=== PATIENT | male | born 1945 | race Caucasian/White ===

== ENCOUNTER → 2017-07-11 15:16 | Outpatient (CLI) | payer MEDICARE, MEDICAID, SELFPAY | PROVIDERS: PCP Internal Medicine; Visit Provider Internal Medicine | DX: I49.9 Cardiac arrhythmia, unspecified (principal); I10 Essential (primary) hypertension | CPT/HCPCS: 93005 ==

== ENCOUNTER 2020-12-01 07:18 | Inpatient (IN) | payer MEDICARE, MEDICAID, SELFPAY ==
[2020-12-01] VITALS (16 sets, daily range): BP systolic 139–270; BP diastolic 59–116; PULSE 61–117; RESP 18–28; TEMP 36.7–38.2; O2SAT 77–99; BMI 22.7; BMI 20.8
--- NOTE | 2020-12-01 07:29 | XR_ITS ---
PROCEDURE: XR CHEST PORTABLE CLINICAL HISTORY: shortness of breath COMPARISON: No exams were available for comparison FINDINGS: There are no previous exams available for comparison. There is mild cardiomegaly. No pulmonary venous congestion. Interstitial changes are present with Leanne B lines in the lower lobes. Consolidation is present in the right lower lobe and right midlung. COPD changes. There is biapical pleural parenchymal calcification. No obvious pleural effusion IMPRESSION: Consolidation is present in the right mid lower lung zone consistent with pneumonia. COPD with diffuse prominence of the interstitium and diffuse interstitial edema in the lower lobes. The pulmonary vessels however are not engorged. Interstitial edema could be related to acute cardiac decompensation, acute plasma volume overload, or infectious/inflammatory.,. Please correlate with clinical parameters. Biapical pleural/parenchymal calcification. Dictated by: Angelito Hammond MD 12/01/2020 08:38 Angelito Hammond MD in [place] 12/01/2020 08:38
--- NOTE | 2020-12-01 07:31 | HMH.EDGENADL ---
ED Disposition Clinical Impression: Pneumonia Qualifiers: Pneumonia type: due to unspecified organism Laterality: right Lung location: middle lobe of lung Qualified Code(s): J18.9 - Pneumonia, unspecified organism Respiratory failure with hypoxia Qualifiers: Chronicity: acute Qualified Code(s): J96.01 - Acute respiratory failure with hypoxia Disposition: Admitted As Inpatient Condition on Discharge: [facility] Critical Care Critical Care Time: No Attestation: On , the high probability of a clinically significant, sudden or life threatening deterioration of the following system(s) required my full and direct attention, intervention and personal management. The time I documented below is in addition to time spent performing reported procedures but includes the following listed in this critical care notation. Medical Decision Making - Hugh Inquiry Pt receiving controlled substance: No Vital Signs: 12/01/20 07:19 12/01/20 08:31 12/01/20 09:33 Temperature 100.7 F H Temperature Source Oral Pulse Rate 61 83 Pulse Rate [Right Radial] 117 H Respiratory Rate 24 20 18 Blood Pressure 182/59 H 270/116 H Blood Pressure [Right Arm] 198/102 H Blood Pressure Mean [Right Arm] 134 Blood Pressure Source Blood Pressure Source [Right Arm] Automatic Cuff Blood Pressure Position Blood Pressure Position [Right Arm] Sitting 02 Sat by Pulse Oximetry 77 L 93 L 97 Oxygen Delivery Method Room Air Non-Rebreather Non-Rebreather Oxygen Flow Rate (LPM) 12/01/20 10:00 12/01/20 10:51 12/01/20 11:00 Temperature Temperature Source Pulse Rate 80 91 H 95 H Pulse Rate [Right Radial] Respiratory Rate 23 22 28 H Blood Pressure 217/96 H 226/103 H 222/102 H Blood Pressure [Right Arm] Blood Pressure Mean [Right Arm] Blood Pressure Source Automatic Cuff Blood Pressure Source [Right Arm] Blood Pressure Position Sitting Sitting Blood Pressure Position [Right Arm] 02 Sat by Pulse Oximetry 92 L 88 L 85 L Oxygen Delivery Method Nasal Cannula Nasal Cannula Nasal Cannula Oxygen Flow Rate (LPM) 5 5 5 12/01/20 11:20 12/01/20 11:30 12/01/20 11:40 Temperature Temperature Source Pulse Rate 106 H 86 Pulse Rate [Right Radial] Respiratory Rate 28 H 18 Blood Pressure 212/102 H 205/90 H Blood Pressure [Right Arm] Blood Pressure Mean [Right Arm] Blood Pressure Source Automatic Cuff Automatic Cuff Blood Pressure Source [Right Arm] Blood Pressure Position Sitting Sitting Blood Pressure Position [Right Arm] 02 Sat by Pulse Oximetry 97 83 L 98 Oxygen Delivery Method Vapotherm Nasal Cannula Vapotherm Oxygen Flow Rate (LPM) 30 5 - Lab Data Lab Results 12/01/20 07:29: VBG pH 7.36, VBG pCO2 38.5, VBG pO2 46.9 H, VBG HCO3 21.4 L, VBG Total CO2 22.6 L, VBG O2 Saturation 83.5 H, VBG Base Excess -4.0 L 12/01/20 07:36: SARS-CoV-2 (PCR) Not detected, Influenza A Untype (PCR) Not detected, Influenza Type B (PCR) Not detected 12/01/20 07:36: Chlamy pneumoniae PCR Not detected, Adenovirus (PCR) Not detected, B. pertussis DNA (PCR) Not detected, Coronavirus OC43 (PCR) Not detected, Coronavirus HKU1 (PCR) Not detected, Coronavirus 229E (PCR) Not detected, SARS-CoV-2 (PCR) Not detected, Coronavirus NL63 (PCR) Not detected, Human Metapneumovir PCR Not detected, Influenza A (H1) PCR Not detected, Influ A (H1N1/09) PCR Not detected, Influenza A (H3) PCR Not detected, Influenza Type A (PCR) Not detected, Influenza Type B (PCR) Not detected, M. pneumoniae (PCR) Not detected, Parainfluenza 1 (PCR) Not detected, Parainfluenza 2 (PCR) Not detected, Parainfluenza 3 (PCR) Not detected, Parainfluenza 4 (PCR) Not detected, RSV (PCR) Not detected, Entero/Rhino (PCR) Not detected 12/01/20 07:46: WBC 13.7 H, RBC 4.58 L, Hgb 13.9 L, Hct 43.8, MCV 95.6 H, MCH 30.4, MCHC 31.8, RDW 14.7, Plt Count 376, MPV 8.1, Neut % (Auto) 72.8, Lymph % (Auto) 14.6, [place] % (Auto) 2.9, Eos % (Auto) 8.9, Baso % (Auto) 0.8, Neut # (Auto) 10.0
--- NOTE | 2020-12-01 07:34 | ECG_ITS ---
APPROVED REPORT Exam: Resting ECG HR:96 bpm ECG Measurements Heart Rate 96 AXES NM 166 P 79 QRSd 164 QRS -44 QT 412 T 137 QTc 520 Conclusion Sinus rhythm with premature atrial complexes Left axis deviation Left bundle branch block Abnormal ECG Electronically signed by : Emiliano Rosario, 12/01/2020 21:01:40
--- NOTE | 2020-12-01 07:38 | CT_ITS ---
PROCEDURE: CT ANGIO CHEST PE PROTOCOL CLINCIAL INDICATION: sob, hypoxia COMPARISON: CR XR CHEST PORTABLE from 12/01/2020 TECHNIQUE: IV Contrast: 70ML Isovue 370 Axial images obtained with sagittal and coronal reformats. All CT scans at the facility use one or more dose reduction, viz: automated exposure control, ma/kV adjustment per patient size (including targeted exams where dose is matched to indication, i.e. head), or iterative reconstruction technique. FINDINGS: HEART AND MEDIASTINAL STRUCTURES: There is prominent coronary artery calcification. Cardiomegaly. No evidence of aortic aneurysm or dissection. Atherosclerotic changes are present involving the aorta. There is some minimal aortic valve calcification. No evidence of pulmonary embolus. Mildly prominent AP window lymph node at 18 x 8 mm. Overall slight increased density of the mediastinal fat possibly due to underlying inflammatory changes. Prominent right paratracheal lymph node at 17 mm. Increased peribronchial density in the right hilar region which may be related to adenopathy LUNGS AND PLEURAL SPACES: Biapical pleural parenchymal calcification. Centrilobular emphysema. Consolidation is present involving the right lower lobe diffusely with some sparing anteriorly superimposed upon pulmonary fibrotic changes. There is consolidation in the posterior segment of the right upper lobe. Consolidation present in the left lower lobe posteriorly in the superior segment and in the left upper lobe posteriorly along the major fissure. There is a small right pleural effusion. Mild consolidation noted in the right middle lobe. There is some mild diffuse bronchial thickening. There is trace left effusion. BONY STRUCTURES: No acute bony abnormalities apparent. UPPER ABDOMEN: Nonspecific hypodensity left hepatic lobe at 12 mm. Mild prominence of the left adrenal gland ADDITIONAL FINDINGS: No other significant abnormalities. IMPRESSION: 1. No evidence of pulmonary embolus. 2. Diffuse bilateral pneumonia superimposed upon centrilobular emphysema and pulmonary fibrosis. 3. Cardiomegaly. Small bilateral effusions. 4. Mild mediastinal adenopathy which could be reactive. Follow-up may confirm stability. Dictated by: Angelito Hammond MD 12/01/2020 10:03 Angelito Hammond MD in [place] 12/01/2020 10:03
--- NOTE | 2020-12-01 07:38 | PC.NURSE ---
notified RT of VBG order
[2020-12-01 07:54] LABS: Coronavirus 19, PCR Not Detected (NotDetected); Influenza A, PCR Not Detected (NotDetected); Influenza B, PCR Not Detected (NotDetected)
--- NOTE | 2020-12-01 07:56 | PC.NURSE ---
notified rad of orders on pt.
[2020-12-01 08:00] LABS: Basophils # 0.1 K/mm3 (0-0.2); Basophils % 0.8 % (0.1-2.0); Eosinophils # 1.2 K/mm3 (0.0-0.4); Eosinophils % 8.9 % (0.1-12.0); Hematocrit 43.8 % (42.0-52.0); Hemoglobin 13.9 g/dL (14.1-18.0); Lymphocytes % 14.6 % (10-50); Mean Corpuscular HGB Conc 31.8 g/dL (31.8-35.4); Mean Corpuscular Hemoglobin 30.4 pg (27.0-31.2); Mean Corpuscular Volume 95.6 fl (80-94); Mean Platelet Volume 8.1 fl (7.4-10.4); Monocytes # 0.4 K/mm3 (0.1-1.0); Monocytes % 2.9 % (1.7-9.3); Neutrophils % 72.8 % (37.0-80.0); Platelet Count 376 K/mm3 (142-424); Red Blood Count 4.58 M/mm3 (4.60-6.20); Red Cell Distribution Width 14.7 % (11.5-17.5); White Blood Count 13.7 K/mm3 (4.8-10.8)
--- NOTE | 2020-12-01 08:05 | HMH.EDGENADL ---
ED Disposition Clinical Impression: Pneumonia Qualifiers: Pneumonia type: due to unspecified organism Laterality: right Lung location: middle lobe of lung Qualified Code(s): J18.9 - Pneumonia, unspecified organism Respiratory failure with hypoxia Qualifiers: Chronicity: acute Qualified Code(s): J96.01 - Acute respiratory failure with hypoxia Disposition: Admitted As Inpatient Condition on Discharge: Serious Time of Disposition: 10:02 - Critical Care Critical Care Time: Yes Attestation: On 12/01/20, the high probability of a clinically significant, sudden or life threatening deterioration of the following system(s) required my full and direct attention, intervention and personal management. The time I documented below is in addition to time spent performing reported procedures but includes the following listed in this critical care notation. Total Critical Care Time: 31 Vital system(s) involved:: Respiratory Failure My critical care processes included: Assessment & monitoring of V/S, Initial and Re-exams, Data Review/Interpretation, Coordinating Care, Medication Orders and management, Documentation Medical Decision Making - Medical Records Medical records reviewed: Yes: I reviewed the patient's medical records. - Hugh Inquiry Pt receiving controlled substance: No Vital Signs: 12/01/20 07:19 12/01/20 08:31 12/01/20 09:33 Temperature 100.7 F H Temperature Source Oral Pulse Rate 61 83 Pulse Rate [Right Radial] 117 H Respiratory Rate 24 20 18 Blood Pressure 182/59 H 270/116 H Blood Pressure [Right Arm] 198/102 H Blood Pressure Mean [Right Arm] 134 Blood Pressure Source Blood Pressure Source [Right Arm] Automatic Cuff Blood Pressure Position Blood Pressure Position [Right Arm] Sitting 02 Sat by Pulse Oximetry 77 L 93 L 97 Oxygen Delivery Method Room Air Non-Rebreather Non-Rebreather Oxygen Flow Rate (LPM) 12/01/20 10:00 12/01/20 10:51 12/01/20 11:00 Temperature Temperature Source Pulse Rate 80 91 H 95 H Pulse Rate [Right Radial] Respiratory Rate 23 22 28 H Blood Pressure 217/96 H 226/103 H 222/102 H Blood Pressure [Right Arm] Blood Pressure Mean [Right Arm] Blood Pressure Source Automatic Cuff Blood Pressure Source [Right Arm] Blood Pressure Position Sitting Sitting Blood Pressure Position [Right Arm] 02 Sat by Pulse Oximetry 92 L 88 L 85 L Oxygen Delivery Method Nasal Cannula Nasal Cannula Nasal Cannula Oxygen Flow Rate (LPM) 5 5 5 07/28/21 11:20 12/01/20 11:30 12/01/20 11:40 Temperature Temperature Source Pulse Rate 106 H 86 Pulse Rate [Right Radial] Respiratory Rate 28 H 18 Blood Pressure 212/102 H 205/90 H Blood Pressure [Right Arm] Blood Pressure Mean [Right Arm] Blood Pressure Source Automatic Cuff Automatic Cuff Blood Pressure Source [Right Arm] Blood Pressure Position Sitting Sitting Blood Pressure Position [Right Arm] 02 Sat by Pulse Oximetry 97 83 L 98 Oxygen Delivery Method Vapotherm Nasal Cannula Vapotherm Oxygen Flow Rate (LPM) 30 5 - Lab Data Lab Results 12/01/20 07:29: VBG pH 7.36, VBG pCO2 38.5, VBG pO2 46.9 H, VBG HCO3 21.4 L, VBG Total CO2 22.6 L, VBG O2 Saturation 83.5 H, VBG Base Excess -4.0 L 12/01/20 07:36: SARS-CoV-2 (PCR) Not detected, Influenza A Untype (PCR) Not detected, Influenza Type B (PCR) Not detected 12/01/20 07:36: Chlamy pneumoniae PCR Not detected, Adenovirus (PCR) Not detected, B. pertussis DNA (PCR) Not detected, Coronavirus OC43 (PCR) Not detected, Coronavirus HKU1 (PCR) Not detected, Coronavirus 229E (PCR) Not detected, SARS-CoV-2 (PCR) Not detected, Coronavirus NL63 (PCR) Not detected, Human Metapneumovir PCR Not detected, Influenza A (H1) PCR Not detected, Influ A (H1N1/09) PCR Not detected, Influenza A (H3) PCR Not detected, Influenza Type A (PCR) Not detected, Influenza Type B (PCR) Not detected, M. pneumoniae (PCR) Not detected, Parainfluenza 1 (PCR) Not detected, Parainfluenz
--- NOTE | 2020-12-01 08:07 | PC.NURSE ---
Pt moved to room 5 and placed on COVID r/o precautions. Pt also placed on nonrebreather, sat now 95%
--- NOTE | 2020-12-01 08:09 | PC.NURSE ---
Rad at bedside
[2020-12-01 08:13] LABS: Alanine Aminotransferase 12 U/L (12-78); Albumin Level 4.2 g/dl (3.5-5.0); Albumin/Globulin Ratio 1.3 (1.1-1.8); Alkaline Phosphatase 126 U/L (38-126); Anion Gap 14.7 mEq/L (5-15); Aspartate Amino Transferase 25 U/L (17-59); Bilirubin,Total 0.5 mg/dl (0.2-1.3); Blood Urea Nitrogen 24 mg/dl (9-20); Calcium 8.9 mg/dl (8.4-10.2); Carbon Dioxide 23 mmol/L (22.0-30.0); Chloride 106 mmol/L (98-107); Creatinine Clearance Estimated 49 mL/min (50-200); Estimated Glomerular Filt Rate 59 ml/min (>60); GFR (African American) 71 ML/MIN (>60); Globulin 3.3 g/dL (1.3-3.2); Glucose 161 mg/dl (74-100); Potassium 3.7 mmoL/L (3.5-5.1); Sodium 140 mmol/L (136-145); Total Protein,Serum 7.5 g/dl (6.3-8.2)
[2020-12-01 08:14] LABS: Lactic Acid 1.5 mmol/L (0.7-2.1)
[2020-12-01 08:15] LABS: VBG HCO3 21.4 mmol/L (23-30); VBG Oxygen Saturation 83.5 % (50-70); VBG PCO2 38.5 mmol/L (35-51); VBG PH 7.36 mmol/L (7.31-7.41); VBG PO2 46.9 mmol/L (28-40); VBG Total CO2 22.6 mmol/L (23-27)
[2020-12-01 08:25] LABS: Troponin I 0.05 ng/ml (0.00-0.034)
--- NOTE | 2020-12-01 09:57 | PC.NURSE ---
speaking with Dr Rosario at this time.
--- NOTE | 2020-12-01 10:00 | PC.NURSE ---
Pt admitting per Dr Rosario with Dx of Right Lobar Pneumonia. Spoke with Yessenia Medrano for admission.
--- NOTE | 2020-12-01 10:12 | PC.NURSE ---
Mechanical Sound Technician gave room assignment of [id number]
--- NOTE | 2020-12-01 10:47 | PC.NURSE ---
Called report to Dionne
[2020-12-01 10:58] LABS: Troponin I 0.31 ng/ml (0.00-0.034)
--- NOTE | 2020-12-01 11:10 | PC.NURSE ---
Pt O2 at 83% via NC at 5LPM. requests vapotherm. RT notified
--- NOTE | 2020-12-01 11:21 | PC.NURSE ---
RT at bedside
[2020-12-01 12:13] LABS: Adenovirus,PCR Not Detected (NotDetected); Bordetella Pertussis Not Detected (NotDetected); Chlamydophila Pneumoniae, PCR Not Detected (NotDetected); Coronavirus 19, PCR Not Detected (NotDetected); Coronavirus 229E Not Detected (NotDetected); Coronavirus NL63 Not Detected (NotDetected); Coronavirus OC43 Not Detected (NotDetected); Coronovirus HKU1,PCR Not Detected (NotDetected); Human Metapneumovirus Not Detected (NotDetected); Influenza A, PCR Not Detected (NotDetected); Influenza AH1, 2009 Not Detected (NotDetected); Influenza AH1, PCR Not Detected (NotDetected); Influenza AH3,PCR Not Detected (NotDetected); Influenza B, PCR Not Detected (NotDetected); Mycoplasma Pneumoniae, PCR Not Detected (NotDetected); Parainfluenza 1, PCR Not Detected (NotDetected); Parainfluenza 2, PCR Not Detected (NotDetected); Parainfluenza 3, PCR Not Detected (NotDetected); Parainfluenza 4, PCR Not Detected (NotDetected); Respiratory Syncytial Virus Not Detected (NotDetected); Rhinovirus/Enterovirus Not Detected (NotDetected)
--- NOTE | 2020-12-01 14:21 | PC.NURSE ---
since arriving to floor patient has done well on the vapotherm. he has had no complaints of shortness of breath. has used urinal at bedside. up walking around bed. does not appear to be in any distress. lungs diminished. vitals stable.
--- NOTE | 2020-12-01 17:52 | HMH.HP ---
*Admission Date: 12/01/20 *Chief complaint: Cough and shortness of air *History of present illness: 75-year-old white male, heavy smoker, who is not seen any kind of medical practitioner for the last 5 to 8 years, presents to the emergency department cough, shortness of air. Found to be hypoxic. Found to have right lobar infiltrate and minimal elevation of white count. Admitted to hospital because of oxygen requirement, abnormal vital signs and need for IV antibiotics. [facility] History I have reviewed the patient's past medical history: Yes Medical History: Denies:: Atrial Fibrillation, Congestive Heart Failure, Chronic Obstructive Pulmonary Disease (COPD), Coronary Artery Disease, Diabetes Mellitus Type 1, Diabetes Mellitus Type 2, Gastroesophageal Reflux Disease(GERD), Hypertension *Have you ever received a pneumonia vaccine?: No *Have you received a flu vaccine this season?: No - *Social History Last grade of school completed: 7th or 8th Smoking Status: Current every day smoker Tobacco Type: cigarettes # Packs/Day (cigarettes): 1 Alcohol Intake: never *Occupational Status:: retired Household Members: none *Travel in the last 8 weeks: None Family Hx:: No significant family history Review of Systems - Review of Systems Review of systems:: pertinent systems reviewed and negative unless documented below Patient reports cough and shortness of air. Otherwise negative 10 point review of systems. - *Neurologic Denies confusion, Denies dizziness, Denies headache(s), Denies loss of vision Meds Home Medications Medication Instructions Recorded Confirmed Type No Known Home Medications 12/01/20 12/01/20 History Allergies Allergy/AdvReac Type Severity Reaction Status Date / Time No Known Allergies Allergy Unverified 12/01/20 12:02 Exam Vital signs and Labs for Last 24 Hours: Temp Pulse Resp BP Pulse Ox 98.5 F 96 H 22 139/88 98 12/01/20 15:33 12/01/20 15:33 12/01/20 15:33 12/01/20 15:33 12/01/20 15:33 Laboratory Results - last 24 hr 12/01/20 07:29: VBG pH 7.36, VBG pCO2 38.5, VBG pO2 46.9 H, VBG HCO3 21.4 L, VBG Total CO2 22.6 L, VBG O2 Saturation 83.5 H, VBG Base Excess -4.0 L 12/01/20 07:36: SARS-CoV-2 (PCR) Not detected, Influenza A Untype (PCR) Not detected, Influenza Type B (PCR) Not detected 12/01/20 07:36: Chlamy pneumoniae PCR Not detected, Adenovirus (PCR) Not detected, B. pertussis DNA (PCR) Not detected, Coronavirus OC43 (PCR) Not detected, Coronavirus HKU1 (PCR) Not detected, Coronavirus 229E (PCR) Not detected, SARS-CoV-2 (PCR) Not detected, Coronavirus NL63 (PCR) Not detected, Human Metapneumovir PCR Not detected, Influenza A (H1) PCR Not detected, Influ A (H1N1/09) PCR Not detected, Influenza A (H3) PCR Not detected, Influenza Type A (PCR) Not detected, Influenza Type B (PCR) Not detected, M. pneumoniae (PCR) Not detected, Parainfluenza 1 (PCR) Not detected, Parainfluenza 2 (PCR) Not detected, Parainfluenza 3 (PCR) Not detected, Parainfluenza 4 (PCR) Not detected, RSV (PCR) Not detected, Entero/Rhino (PCR) Not detected 12/01/20 07:46: WBC 13.7 H, RBC 4.58 L, Hgb 13.9 L, Hct 43.8, MCV 95.6 H, MCH 30.4, MCHC 31.8, RDW 14.7, Plt Count 376, MPV 8.1, Neut % (Auto) 72.8, Lymph % (Auto) 14.6, [place] % (Auto) 2.9, Eos % (Auto) 8.9, Baso % (Auto) 0.8, Neut # (Auto) 10.0 H, Lymph # (Auto) 2.0, [place] # (Auto) 0.4, Eos # (Auto) 1.2 H, Baso # (Auto) 0.1 12/01/20 07:46: Sodium 140, Potassium 3.7, Chloride 106, Carbon Dioxide 23, Anion Gap 14.7, BUN 24 H, Creatinine 1.20, Estimated Creat Clear 49, Estimated GFR 59, Est GFR ( Amer) 71, Glucose 161 H, Calcium 8.9, Total Bilirubin 0.5, AST 25, ALT 12, Alkaline Phosphatase 126, Troponin I 0.05 H, Total Protein 7.5, Albumin 4.2, Globulin 3.3 H, Albumin/Globulin Ratio 1.3 12/01/20 07:46: Lactate 1.5 12/01/20 10:30: Troponin I 0.31 H I & O for Last 24 hours: Intake & Output 11/29/20 11/30/20 12/01/20 12/02/20 11:59 11:59 11:59 11:59 Intake Total 480 /
--- NOTE | 2020-12-01 22:29 | PC.NURSE ---
DECREASED TO 25L / 50% O2.
[2020-12-02] VITALS (10 sets, daily range): BP systolic 141–196; BP diastolic 80–90; PULSE 71–95; RESP 18–20; TEMP 36.6–37.1; O2SAT 90–100; BMI 21.0
--- NOTE | 2020-12-02 03:57 | PC.NURSE ---
pt has rested throughout shift. vapotherm currently at 25LPM and 50% FIO2. no complaints voiced this shift. iv patent and infusing per order. vss. call light in reach. will continue to monitor pt condition
[2020-12-02 06:28] LABS: Basophils % 0.1 % (0.1-2.0); Eosinophils # 0.1 K/mm3 (0.0-0.4); Eosinophils % 0.6 % (0.1-12.0); Hematocrit 35.1 % (42.0-52.0); Lymphocytes # 0.9 K/mm3 (0.7-4.5); Lymphocytes % 5.9 % (10-50); Mean Corpuscular HGB Conc 32.8 g/dL (31.8-35.4); Mean Corpuscular Hemoglobin 31.2 pg (27.0-31.2); Mean Platelet Volume 7.6 fl (7.4-10.4); Monocytes # 0.4 K/mm3 (0.1-1.0); Monocytes % 2.8 % (1.7-9.3); Neutrophils # 14.2 K/mm3 (1.8-7.8); Neutrophils % 90.6 % (37.0-80.0); Platelet Count 306 K/mm3 (142-424); Red Blood Count 3.69 M/mm3 (4.60-6.20); Red Cell Distribution Width 14.6 % (11.5-17.5); White Blood Count 15.7 K/mm3 (4.8-10.8)
[2020-12-02 06:37] LABS: MANUAL DIFFERENTIAL MANUAL DIFFERENTIAL (MANUAL DIFF)
[2020-12-02 06:43] LABS: Anion Gap 10.9 mEq/L (5-15); Blood Urea Nitrogen 21 mg/dl (9-20); Calcium 8.1 mg/dl (8.4-10.2); Carbon Dioxide 21 mmol/L (22.0-30.0); Chloride 111 mmol/L (98-107); Creatinine Clearance Estimated 55 mL/min (50-200); Estimated Glomerular Filt Rate 73 ml/min (>60); GFR (African American) 88 ML/MIN (>60); Glucose 130 mg/dl (74-100); Potassium 3.9 mmoL/L (3.5-5.1); Sodium 139 mmol/L (136-145)
--- NOTE | 2020-12-02 07:00 | XR_ITS ---
PROCEDURE INFORMATION: Exam: XR Chest Exam date and time: 12/02/2020 7:00 AM Age: 75 years old Clinical indication: Smoker's cough; Additional info: Pneumonia TECHNIQUE: Imaging protocol: XR of the chest. Views: 1 view. COMPARISON: CR XR CHEST PORTABLE 12/01/2020 7:59 AM FINDINGS: Lungs: The perihilar interstitial infiltrates have improved consistent with improving pulmonary edema versus bilateral pneumonitis. Pleural spaces: No pleural effusion or pneumothorax is seen. There are pleural calcifications within the lung apex bilaterally. Heart/Mediastinum: There is mild cardiomegaly similar to the prior exam. Bones/joints: The bones are demineralized. IMPRESSION: Stable cardiomegaly with slightly improving perihilar interstitial infiltrates suggesting improving interstitial pneumonitis or pulmonary edema.
--- NOTE | 2020-12-02 07:09 | P.CONPHA_ITS ---
[facility] VTE Monitoring - Patient Demographics Admission date: 12/01/20 Report Date: 12/02/20 Time: 07:09 Allergies/Adverse Reactions: Patient Allergies No Known Allergies Allergy (Unverified 12/01/20 12:02) Height: 1.7 m Weight: 60.781 kg Patient Problems: Current Active Problems Pneumonia (Acute) Respiratory failure with hypoxia (Acute) - VTE Risk Labs: VTE Related Lab Results Hgb 13.9 g/dL (14.1-18.0) L 12/01/20 07:46 Hct 35.1 % (42.0-52.0) L 12/02/20 06:07 Plt Count 306 K/mm3 (142-424) 12/02/20 06:07 BUN 21 mg/dl (9-20) H 12/02/20 06:07 Creatinine 1.00 mg/dl (0.66-1.25) 12/02/20 06:07 Estimated Creat Clear 55 mL/min (50-200) 12/02/20 06:07 Was VTE Risk Assessment Performed: Yes VTE Score: 1 VTE Risk Level: Low Risk Clinical Trial Participant: No - Prophylaxis VTE Prophylaxis Ordered?: Yes Types of VTE Prophylaxis: TEDS Knee High
[2020-12-02 07:29] LABS: Lymphocytes % 5 % (10-50); Monocytes % 2 % (2-9); Neutrophils % 93 % (42-76); Total Cells Counted 100
[2020-12-02 07:30] LABS: Macrocytosis 1+; Platelet Estimate Normal
[2020-12-02 07:50] LABS: Hemoglobin 11.5 g/dL (14.1-18.0)
--- NOTE | 2020-12-02 07:56 | HMH.ACPN2 ---
Internal Medicine - PN: Subj *Date: 12/02/20 *Time: 07:56 Interval history: Overall patient is feeling much better. Has no complaints. Tolerating nasal cannula Vapotherm well. Exam Vital signs and Labs for Last 24 Hours: Temp Pulse Resp BP Pulse Ox 97.8 F 95 H 19 162/90 H 90 L 12/02/20 07:46 12/02/20 07:46 12/02/20 07:46 12/02/20 07:46 12/02/20 07:46 Laboratory Results - last 24 hr 12/01/20 07:29: VBG pH 7.36, VBG pCO2 38.5, VBG pO2 46.9 H, VBG HCO3 21.4 L, VBG Total CO2 22.6 L, VBG O2 Saturation 83.5 H, VBG Base Excess -4.0 L 12/01/20 07:36: SARS-CoV-2 (PCR) Not detected, Influenza A Untype (PCR) Not detected, Influenza Type B (PCR) Not detected 12/01/20 07:36: Chlamy pneumoniae PCR Not detected, Adenovirus (PCR) Not detected, B. pertussis DNA (PCR) Not detected, Coronavirus OC43 (PCR) Not detected, Coronavirus HKU1 (PCR) Not detected, Coronavirus 229E (PCR) Not detected, SARS-CoV-2 (PCR) Not detected, Coronavirus NL63 (PCR) Not detected, Human Metapneumovir PCR Not detected, Influenza A (H1) PCR Not detected, Influ A (H1N1/09) PCR Not detected, Influenza A (H3) PCR Not detected, Influenza Type A (PCR) Not detected, Influenza Type B (PCR) Not detected, M. pneumoniae (PCR) Not detected, Parainfluenza 1 (PCR) Not detected, Parainfluenza 2 (PCR) Not detected, Parainfluenza 3 (PCR) Not detected, Parainfluenza 4 (PCR) Not detected, RSV (PCR) Not detected, Entero/Rhino (PCR) Not detected 12/01/20 07:46: WBC 13.7 H, RBC 4.58 L, Hgb 13.9 L, Hct 43.8, MCV 95.6 H, MCH 30.4, MCHC 31.8, RDW 14.7, Plt Count 376, MPV 8.1, Neut % (Auto) 72.8, Lymph % (Auto) 14.6, [place] % (Auto) 2.9, Eos % (Auto) 8.9, Baso % (Auto) 0.8, Neut # (Auto) 10.0 H, Lymph # (Auto) 2.0, [place] # (Auto) 0.4, Eos # (Auto) 1.2 H, Baso # (Auto) 0.1 12/01/20 07:46: Sodium 140, Potassium 3.7, Chloride 106, Carbon Dioxide 23, Anion Gap 14.7, BUN 24 H, Creatinine 1.20, Estimated Creat Clear 49, Estimated GFR 59, Est GFR ( Amer) 71, Glucose 161 H, Calcium 8.9, Total Bilirubin 0.5, AST 25, ALT 12, Alkaline Phosphatase 126, Troponin I 0.05 H, Total Protein 7.5, Albumin 4.2, Globulin 3.3 H, Albumin/Globulin Ratio 1.3 12/01/20 07:46: Lactate 1.5 12/01/20 10:30: Troponin I 0.31 H 12/02/20 06:07: WBC 15.7 H, RBC 3.69 L, Hgb 11.5 L D, Hct 35.1 L, MCV 95.0 H, MCH 31.2, MCHC 32.8, RDW 14.6, Plt Count 306, MPV 7.6, Neut % (Auto) 90.6 H, Lymph % (Auto) 5.9 L, [place] % (Auto) 2.8, Eos % (Auto) 0.6, Baso % (Auto) 0.1, Neut # (Auto) 14.2 H, Lymph # (Auto) 0.9, [place] # (Auto) 0.4, Eos # (Auto) 0.1, Baso # (Auto) 0.0, Total Counted 100, Neutrophils % (Manual) 93 H, Lymphocytes % (Manual) 5 L, Monocytes % (Manual) 2, Platelet Estimate Normal, Macrocytosis 1+ 12/02/20 06:07: Sodium 139, Potassium 3.9, Chloride 111 H, Carbon Dioxide 21 L, Anion Gap 10.9, BUN 21 H, Creatinine 1.00, Estimated Creat Clear 55, Estimated GFR 73, Est GFR ( Amer) 88 D, Glucose 130 H, Calcium 8.1 L I & O for Last 24 hours: Intake & Output 11/29/20 11/30/20 12/01/20 12/02/20 11:59 11:59 11:59 11:59 Intake Total 2961 / 2961 Output Total 700 / 700 Balance 2261 / 2261 Weight 145 lb 134 lb Narrative: Patient is sitting up in bed, eating breakfast. Blood pressure slightly elevated. Lungs have good air movement, heart rate regular. Abdomen soft, minimal crackles in the right lower lung field. No edema or clubbing. Assessment and Plan (1) Pneumonia Status: Acute Qualifiers: Pneumonia type: due to unspecified organism Laterality: right Lung location: middle lobe of lung Qualified Code(s): J18.9 - Pneumonia, unspecified organism Category: Medical Code(s): J18.9 - Pneumonia, unspecified organism (2) Respiratory failure with hypoxia Status: Acute Qualifiers: Chronicity: acute Qualified Code(s): J96.01 - Acute respiratory failure with hypoxia Category: Medical Code(s): J96.91 - Respiratory failure, unspecified with hypoxia - Assessment and plan all Dx Assess
--- NOTE | 2020-12-02 17:52 | PC.NURSE ---
Pt was on 4-5L NC for a short time at the beginning of this shift. Pt did not tolerate NC for long, o2 sats were between 73-80%. RT placed pt back on vapotherm. MD Rosario, notified. x1 dose of lasix and solumedrol ordered and carried out. Pt has responded well since then. Currently pt is on 40L/80%fiO2. Pt has had x1 large BM this shift. No other acute changes or complaints at this time, will continue to monitor.
[2020-12-03] VITALS (10 sets, daily range): BP systolic 174–193; BP diastolic 78–90; PULSE 63–81; RESP 18–20; TEMP 36.8–37.2; O2SAT 90–100; BMI 21.4
--- NOTE | 2020-12-03 07:13 | HMH.ACPN2 ---
Internal Medicine - PN: Subj *Date: 12/03/20 *Time: 13:41 Interval history: States he feels somewhat better this morning. Remained afebrile overnight. Continues to require Vapotherm, did not wean as anticipated. Tolerating p.o. intake. Denies chest pain, nausea, vomiting, diarrhea. Pleasant on interview this morning, sitting supine in bed. Exam Vital signs and Labs for Last 24 Hours: Temp Pulse Resp BP Pulse Ox 98.5 F 74 18 182/78 H 94 L 12/03/20 04:00 12/03/20 04:00 12/03/20 04:00 12/03/20 04:00 12/03/20 04:00 Laboratory Results - last 24 hr 12/02/20 06:07: Hgb 11.5 L D, Total Counted 100, Neutrophils % (Manual) 93 H, Lymphocytes % (Manual) 5 L, Monocytes % (Manual) 2, Platelet Estimate Normal, Macrocytosis 1+ I & O for Last 24 hours: Intake & Output 11/30/20 12/01/20 12/02/20 12/03/20 23:59 23:59 23:59 23:59 Intake Total 840 / 1080 2841 / 2841 Output Total 2700 / 3400 700 / 700 Balance 840 / 1080 141 / -559 -700 / -700 Weight 60.356 kg 60.781 kg 62.171 kg Microbiology Reports for the Last 24 Hours: Microbiology 12/02/20 09:10 Sputum - Expectorated Sputum Gram Stain - Final - Constitutional mild distress, thin - *Routine HEENT Exam Head: Present: normocephalic Eye: Present: EOMI, PERRL ENT: Present: mucous membranes moist - *Routine Neck Exam Present: supple. Absent: lymphadenopathy - *Routine Respiratory Exam Present: crackles Comments: Good air movement bilaterally, crackles left lower lobe. No wheeze or rhonchi - *Routine Cardiovascular Exam Present: RRR - *Routine Abdominal Exam Present: soft, normoactive bowel sounds. Absent: tenderness - *Routine Extremities Exam Absent: cyanosis, clubbing, edema Assessment and Plan (1) Pneumonia Status: Acute Qualifiers: Pneumonia type: due to unspecified organism Laterality: right Lung location: middle lobe of lung Qualified Code(s): J18.9 - Pneumonia, unspecified organism Category: Medical Code(s): J18.9 - Pneumonia, unspecified organism (2) Respiratory failure with hypoxia Status: Acute Qualifiers: Chronicity: acute Qualified Code(s): J96.01 - Acute respiratory failure with hypoxia Category: Medical Code(s): J96.91 - Respiratory failure, unspecified with hypoxia (3) Hypertension Status: Acute Category: Medical Code(s): I10 - Essential (primary) hypertension (4) Anemia Status: Acute Category: Medical Code(s): D64.9 - Anemia, unspecified - Assessment and plan all Dx Assessment and Plan for all problems:: 75-year-old male with pneumonia. Continue respiratory support with Vapotherm. Hypoxia somewhat improving, wean as tolerated. Goal saturations greater than 88% while asleep, 92% while awake. Continue antibiotics, broad-spectrum at this time. Cultures pending Blood pressure elevated. Initiated lisinopril this morning, goal blood pressure less than 140/90. Continues to require inpatient management given oxygen requirement. Regular diet Full code
[2020-12-03 11:23] LABS: Basophils % 0.1 % (0.1-2.0); Eosinophils # 0.1 K/mm3 (0.0-0.4); Eosinophils % 0.3 % (0.1-12.0); Hemoglobin 11.3 g/dL (14.1-18.0); Lymphocytes # 1.2 K/mm3 (0.7-4.5); Lymphocytes % 6.9 % (10-50); Mean Corpuscular HGB Conc 33.1 g/dL (31.8-35.4); Mean Corpuscular Hemoglobin 31.1 pg (27.0-31.2); Mean Corpuscular Volume 93.9 fl (80-94); Mean Platelet Volume 8.4 fl (7.4-10.4); Monocytes # 0.7 K/mm3 (0.1-1.0); Monocytes % 3.9 % (1.7-9.3); Neutrophils # 14.8 K/mm3 (1.8-7.8); Neutrophils % 88.9 % (37.0-80.0); Platelet Count 271 K/mm3 (142-424); Red Blood Count 3.62 M/mm3 (4.60-6.20); Red Cell Distribution Width 14.8 % (11.5-17.5); White Blood Count 16.7 K/mm3 (4.8-10.8)
[2020-12-03 11:29] LABS: MANUAL DIFFERENTIAL MANUAL DIFFERENTIAL (MANUAL DIFF)
[2020-12-03 11:37] LABS: Lymphocytes % 9 % (10-50); Monocytes % 3 % (2-9); Neutrophils % 88 % (42-76); Platelet Estimate Normal; RBC Morphology Normal; Total Cells Counted 100
[2020-12-03 11:38] LABS: Chloride 109 mmol/L (98-107); Sodium 139 mmol/L (136-145)
[2020-12-03 11:40] LABS: Blood Urea Nitrogen 27 mg/dl (9-20); Creatinine Clearance Estimated 56 mL/min (50-200); Estimated Glomerular Filt Rate 73 ml/min (>60); GFR (African American) 88 ML/MIN (>60)
[2020-12-03 11:41] LABS: Alanine Aminotransferase 12 U/L (12-78); Albumin Level 3.1 g/dl (3.5-5.0); Albumin/Globulin Ratio 1.2 (1.1-1.8); Alkaline Phosphatase 79 U/L (38-126); Aspartate Amino Transferase 31 U/L (17-59); Bilirubin,Total 0.5 mg/dl (0.2-1.3); Calcium 8.2 mg/dl (8.4-10.2); Carbon Dioxide 22 mmol/L (22.0-30.0); Globulin 2.6 g/dL (1.3-3.2); Glucose 92 mg/dl (74-100); Magnesium 1.8 mg/dl (1.6-2.3); Total Protein,Serum 5.7 g/dl (6.3-8.2)
[2020-12-04] VITALS (9 sets, daily range): BP systolic 154–195; BP diastolic 73–87; PULSE 63–81; RESP 18–20; TEMP 36.9–37.3; O2SAT 90–98
[2020-12-04 07:38] LABS: Basophils % 0.2 % (0.1-2.0); Eosinophils # 0.3 K/mm3 (0.0-0.4); Eosinophils % 2.2 % (0.1-12.0); Hematocrit 31.8 % (42.0-52.0); Hemoglobin 10.2 g/dL (14.1-18.0); Lymphocytes # 1.2 K/mm3 (0.7-4.5); Lymphocytes % 10.7 % (10-50); Mean Corpuscular HGB Conc 32.2 g/dL (31.8-35.4); Mean Corpuscular Hemoglobin 30.8 pg (27.0-31.2); Mean Corpuscular Volume 95.6 fl (80-94); Mean Platelet Volume 7.9 fl (7.4-10.4); Monocytes # 0.5 K/mm3 (0.1-1.0); Monocytes % 3.9 % (1.7-9.3); Neutrophils # 9.6 K/mm3 (1.8-7.8); Neutrophils % 83.1 % (37.0-80.0); Platelet Count 286 K/mm3 (142-424); Red Blood Count 3.32 M/mm3 (4.60-6.20); Red Cell Distribution Width 14.9 % (11.5-17.5); White Blood Count 11.6 K/mm3 (4.8-10.8)
[2020-12-04 07:45] LABS: Anion Gap 7.8 mEq/L (5-15); Blood Urea Nitrogen 26 mg/dl (9-20); Calcium 7.7 mg/dl (8.4-10.2); Carbon Dioxide 23 mmol/L (22.0-30.0); Chloride 110 mmol/L (98-107); Creatinine Clearance Estimated 51 mL/min (50-200); Estimated Glomerular Filt Rate 65 ml/min (>60); GFR (African American) 79 ML/MIN (>60); Glucose 90 mg/dl (74-100); Potassium 3.8 mmoL/L (3.5-5.1); Sodium 137 mmol/L (136-145)
--- NOTE | 2020-12-04 07:46 | HMH.ACPN2 ---
Internal Medicine - PN: Subj *Date: 12/04/20 *Time: 07:46 Interval history: Overall patient continues to feel fairly good, sputum culture is in the lab and now pending. He has been able to be weaned down to 40% on Vapotherm. Has been able to get up and walk around quite a bit, continues to produce lots of mucopurulent sputum. Exam Vital signs and Labs for Last 24 Hours: Temp Pulse Resp BP Pulse Ox 99.0 F 78 20 184/73 H 97 12/04/20 04:00 12/04/20 04:00 12/04/20 04:00 12/04/20 04:00 12/04/20 06:45 Laboratory Results - last 24 hr 12/03/20 11:05: WBC 16.7 H, RBC 3.62 L, Hgb 11.3 L, Hct 34.0 L, MCV 93.9, MCH 31.1, MCHC 33.1, RDW 14.8, Plt Count 271, MPV 8.4, Neut % (Auto) 88.9 H, Lymph % (Auto) 6.9 L, [place] % (Auto) 3.9, Eos % (Auto) 0.3, Baso % (Auto) 0.1, Neut # (Auto) 14.8 H, Lymph # (Auto) 1.2, [place] # (Auto) 0.7, Eos # (Auto) 0.1, Baso # (Auto) 0.0, Total Counted 100, Neutrophils % (Manual) 88 H, Lymphocytes % (Manual) 9 L, Monocytes % (Manual) 3, Platelet Estimate Normal, RBC Morphology Normal 12/03/20 11:05: Sodium 139, Potassium 4.0, Chloride 109 H, Carbon Dioxide 22, Anion Gap 12.0, BUN 27 H D, Creatinine 1.00, Estimated Creat Clear 56, Estimated GFR 73, Est GFR ( Amer) 88, Glucose 92, Calcium 8.2 L, Magnesium 1.8, Total Bilirubin 0.5, AST 31, ALT 12, Alkaline Phosphatase 79, Total Protein 5.7 L, Albumin 3.1 L, Globulin 2.6, Albumin/Globulin Ratio 1.2 12/04/20 06:45: Sodium 137, Potassium 3.8, Chloride 110 H, Carbon Dioxide 23, Anion Gap 7.8, BUN 26 H, Creatinine 1.10, Estimated Creat Clear 51, Estimated GFR 65, Est GFR ( Amer) 79, Glucose 90, Calcium 7.7 L I & O for Last 24 hours: Intake & Output 12/01/20 12/02/20 12/03/20 12/04/20 11:59 11:59 11:59 11:59 Intake Total 2961 / 2961 1200 / 1200 960 / 960 Output Total 700 / 700 2700 / 2700 200 / 200 Balance 2261 / 2261 -1500 / -1500 760 / 760 Weight 145 lb 134 lb 137 lb 1 oz Microbiology Reports for the Last 24 Hours: Microbiology 12/02/20 09:10 Sputum - Expectorated Sputum Gram Stain - Final 12/02/20 09:10 Sputum - Expectorated Sputum Sputum Culture - Preliminary 12/01/20 07:46 Blood Blood Culture - Preliminary NO GROWTH AFTER 48 HOURS 12/01/20 07:46 Blood Blood Culture - Preliminary NO GROWTH AFTER 48 HOURS Narrative: Alert, pleasant, talkative. Lungs have some rhonchi, fairly good air entry. Heart rate regular, abdomen soft, ENT exam clear, neuro exam clear Assessment and Plan (1) Pneumonia Status: Acute Qualifiers: Pneumonia type: due to unspecified organism Laterality: right Lung location: middle lobe of lung Qualified Code(s): J18.9 - Pneumonia, unspecified organism Category: Medical Code(s): J18.9 - Pneumonia, unspecified organism (2) Respiratory failure with hypoxia Status: Acute Qualifiers: Chronicity: acute Qualified Code(s): J96.01 - Acute respiratory failure with hypoxia Category: Medical Code(s): J96.91 - Respiratory failure, unspecified with hypoxia (3) Hypertension Status: Acute Category: Medical Code(s): I10 - Essential (primary) hypertension (4) Anemia Status: Acute Category: Medical Code(s): D64.9 - Anemia, unspecified - Assessment and plan all Dx Assessment and Plan for all problems:: Hypoxia improving. Try to wean down to nasal cannula so patient can be discharged home. Hopefully will have a good sputum culture result tomorrow. Watch labs tomorrow.
--- NOTE | 2020-12-04 20:08 | PC.NURSE ---
Pt alert and oriented and able to make needs known. VSS at this time. has been at bedside this am. CB in reach. No c/o this shift. 02 decreased to 4 L NC and pt tolerating at this time without difficulty. Meds given per mar. Scattered rhonchi tristan lung gallego. S1,S2. BS x 4. Pt ambulates to bathroom.
--- NOTE | 2020-12-04 20:12 | PC.NURSE ---
Pt did have blood tinged sputum, and states he has for a few days since the pneumonia. This RN did make Dr. Rosario aware. NNO at this time.
[2020-12-05] VITALS: BP 176/82; PULSE 70; RESP 20; TEMP 36.6; O2SAT 97
[2020-12-05 04:00] VITALS: BP 160/80; PULSE 71; RESP 18; TEMP 36.4; O2SAT 96
--- NOTE | 2020-12-05 04:21 | PC.NURSE ---
A&O. Pt has rested well throughout shift. Remains on 4L NC, sats in the mid 90s. No c/o pain this shift. IV patent. VSS, call light in reach, no concerns at this time.
[2020-12-05 04:56] VITALS: BMI 21.2
[2020-12-05 07:10] LABS: Basophils # 0.1 K/mm3 (0-0.2); Basophils % 0.6 % (0.1-2.0); Eosinophils # 1.2 K/mm3 (0.0-0.4); Eosinophils % 12.6 % (0.1-12.0); Hematocrit 33.7 % (42.0-52.0); Hemoglobin 11.2 g/dL (14.1-18.0); Lymphocytes # 1.6 K/mm3 (0.7-4.5); Lymphocytes % 17.3 % (10-50); Mean Corpuscular HGB Conc 33.4 g/dL (31.8-35.4); Mean Corpuscular Hemoglobin 31.5 pg (27.0-31.2); Mean Corpuscular Volume 94.3 fl (80-94); Mean Platelet Volume 8.1 fl (7.4-10.4); Monocytes # 0.5 K/mm3 (0.1-1.0); Monocytes % 4.8 % (1.7-9.3); Neutrophils # 6.1 K/mm3 (1.8-7.8); Neutrophils % 64.7 % (37.0-80.0); Platelet Count 289 K/mm3 (142-424); Red Blood Count 3.57 M/mm3 (4.60-6.20); Red Cell Distribution Width 14.5 % (11.5-17.5); White Blood Count 9.4 K/mm3 (4.8-10.8)
[2020-12-05 07:18] LABS: Chloride 111 mmol/L (98-107); Potassium 3.6 mmoL/L (3.5-5.1); Sodium 139 mmol/L (136-145)
[2020-12-05 07:21] LABS: Anion Gap 6.6 mEq/L (5-15); Blood Urea Nitrogen 20 mg/dl (9-20); Calcium 7.9 mg/dl (8.4-10.2); Carbon Dioxide 25 mmol/L (22.0-30.0); Creatinine Clearance Estimated 55 mL/min (50-200); Estimated Glomerular Filt Rate 73 ml/min (>60); GFR (African American) 88 ML/MIN (>60); Glucose 87 mg/dl (74-100)
--- NOTE | 2020-12-05 07:48 | HMH.DCSUM ---
General - General Admission date:: 12/01/20 Discharge date: 12/05/20 HPI HPI: 75-year-old white male, heavy smoker, who is not seen any kind of medical practitioner for the last 5 to 8 years, presents to the emergency department cough, shortness of air. Found to be hypoxic. Found to have right lobar infiltrate and minimal elevation of white count. Admitted to hospital because of oxygen requirement, abnormal vital signs and need for IV antibiotics. Hospital Course Hospital Course: Patient was admitted, placed on standard community-acquired pneumonia protocols. Because of his appearance of unusual groundglass and viral appearing pneumonia COVID-19 and other viral pathogens were evaluated by PCR testing twice. These were all negative. Patient did have quite a bit of sputum production. Unfortunately sputum culture was not obtained until 48 hours after antibiotics and it has grown normal liudmila but does have quite a bit of gram-positive diplococci. He did have quite a bit of oxygen requirement and required Vapotherm for the first 3 days of hospitalization but yesterday was able to be weaned to a nasal cannula and did well through the night on 2 L nasal cannula is very comfortable this morning. Afebrile, white counts normalized, comfortable, he will be discharged home to finish up antibiotics, he will assume care in our office and I will see him on Sunday to follow-up and establish ongoing care. He was found to be be significantly hypertensive in the hospital, did well with 20 mg of lisinopril the last couple of days and we will discharge him on this medication. Objective Vital signs: Temp Pulse Resp BP Pulse Ox 97.6 F 71 18 160/80 H 96 12/05/20 04:00 12/05/20 04:00 12/05/20 04:00 12/05/20 04:00 12/05/20 04:00 no acute distress - *Routine HEENT Exam Head: Present: normocephalic Eye: Present: EOMI, PERRL ENT: Present: mucous membranes moist - *Routine Neck Exam Present: supple - *Routine Respiratory Exam Present: rhonchi (Rhonchi in the right middle lung field, good air movement.) - *Routine Cardiovascular Exam Present: RRR - *Routine Abdominal Exam Present: soft, normoactive bowel sounds. Absent: tenderness - *Routine Extremities Exam Absent: cyanosis, clubbing, edema - *Routine Skin Exam Present: warm. Absent: rash - Detailed Eye Exam Eyelids: Bilateral normal inspection Results Labs on day of discharge: Labs from last 24 hours 12/05/20 12/05/20 12/04/20 06:32 06:32 06:45 WBC 9.4 11.6 H D RBC 3.57 L 3.32 L Hgb 11.2 L 10.2 L Hct 33.7 L 31.8 L MCV 94.3 H 95.6 H MCH 31.5 H 30.8 MCHC 33.4 32.2 RDW 14.5 14.9 Plt Count 289 286 MPV 8.1 7.9 Neut % (Auto) 64.7 83.1 H Lymph % (Auto) 17.3 10.7 [place] % (Auto) 4.8 3.9 Eos % (Auto) 12.6 H 2.2 Baso % (Auto) 0.6 0.2 Neut # (Auto) 6.1 9.6 H Lymph # (Auto) 1.6 1.2 [place] # (Auto) 0.5 0.5 Eos # (Auto) 1.2 H 0.3 Baso # (Auto) 0.1 0.0 Sodium 139 Potassium 3.6 Chloride 111 H Carbon Dioxide 25 Anion Gap 6.6 BUN 20 Creatinine 1.00 Estimated Creat Clear 55 Estimated GFR 73 Est GFR ( Amer) 88 Glucose 87 Calcium 7.9 L Preliminary micro results at discharge 12/01/20 07:46 Blood Culture - Preliminary Blood NO GROWTH AFTER 48 HOURS 12/01/20 07:46 Blood Culture - Preliminary Blood NO GROWTH AFTER 48 HOURS DS: Diagnosis - Discharge Diagnosis (1) Pneumonia Status: Acute (2) Respiratory failure with hypoxia Status: Resolved (3) Hypertension Status: Acute (4) Anemia Status: Resolved Discharge Plan - Patient Discharge Instructions ACTIVITY: Continue current activity DIET: continue same diet Patient Instructions: DI for Pneumonia -- Adult, DI for Respiratory Failure - Follow up Plan Follow up with: Emiliano Rosario MD [Staff Physician] - 12/08/20 8:45 am Disposition: Home, S
[2020-12-05 08:00] VITALS: BP 194/74; PULSE 83; RESP 20; TEMP 36.8; O2SAT 93
--- NOTE | 2020-12-05 09:06 | PC.NURSE ---
Pt's RA is 84% @ this time
== END 2020-12-05 10:25 | disposition home or self-care (01) | DRG 193 ==
LOC: ER 10:03 → 2ND 13:39
PROVIDERS: Emergency Medicine; Internal Medicine Adolescent Medicine; Admitting Provider Internal Medicine Adolescent Medicine; Emergency Provider Emergency Medicine; PCP Internal Medicine; Visit Provider Internal Medicine Adolescent Medicine
DX: J18.9 Pneumonia, unspecified organism (principal); J96.01 Acute respiratory failure with hypoxia; F17.210 Nicotine dependence, cigarettes, uncomplicated; J44.9 Chronic obstructive pulmonary disease, unspecified; D64.9 Anemia, unspecified; Z20.822 Contact with and (suspected) exposure to COVID-19; I10 Essential (primary) hypertension
CPT/HCPCS: 36415; 71045; 71275; 80048; 80053; 82803; 83605; 83735; 84484; 85007; 85025; 87040; 87070; 87205; 87581; 87633; 87798; 93005; 96365; 96367; 96375; 99285; J0456; Q9967; U0003

== ENCOUNTER → 2020-12-20 13:26 | Outpatient (CLI) | payer MEDICARE, MEDICAID, SELFPAY ==
--- NOTE | 2020-12-20 | CA_ITS ---
APPROVED REPORT EXAM: Comprehensive 2D, Doppler, and color-flow Echocardiogram Bankman: Beulah Avalos CRT Ht: 5 ft 7 in Wt: 145lbs BSA: 1.76 BP: 160/80 mmHg Indications: Shortness of Breath, Hypertension/HDD, Smoker, murmur 2D Dimensions LVOT 2.06 cm (M/F) 1.5-2.5 M-Mode Dimensions RVDd 3.10 cm (0.9-2.6) LA Diam 3.33 cm (1.9-4.0) LVDd 4.57 cm (3.5-5.7) Ao Diam 3.70 cm (2.0-3.7) LVDs 4.17 cm (3.5-5.7) IVSd 1.41 cm (0.6-1.1) PWd 1.19 cm (0.6-1.1) EF (Teich) 19.40% FS 8.80% EDV (Teich) 95.90 mL TAPSE 2.18 (<1.7) ESV (Teich) 77.30 mL LV Diastology E Decel Time 237.00 (160-240 msec) E/A Ratio 0.63 MED E' 3.90 (< 7 cm/sec) MED A' 8.90 cm/s E'/MED E' Ratio 16.64 (>14) LAT E' 6.80 (<10 cm/sec) LAT A' 4.40 cm/s E/LAT E' Ratio 9.54 (>14) Aortic Valve LVOT Max 177.00 (70-110 cm/s) LVOT VTI 37.04 cm AoV Peak Iam. 239.00 (50-130 cm/s) AI PHT 491.00 ms AO Peak GR. 22.80 mmHg AO Mean GR. 11.20 (<5 mmHg) AO VTI 44.00 (18-25 cm) SHARON (VTI) 2.81 (2.5-4.5 cm2) Mitral Valve MV E Max Iam. 65.00 (40-130 cm/s) MV A Velocity 103.00 (40-130 cm/s) E/A Ratio 0.63 MV Decel. Time 237.00 (160-240 ms) MV PHT 69.00 ms Pulmonary Valve PV Peak Velocity 89.00 (50-150 cm/s) Tricuspid Valve TR P. Velocity 215.00 cm/s RAP Estimate 10.00 mmHg RVSP 28.50 mmHg Left Ventricle Left atrium is mildly enlarged, left ventricle is normal size, mild concentric left ventricular hypertrophy, moderately reduced left ventricular systolic function, visually estimated ejection fraction 40%, left ventricle is globally hypokinetic. Diastolic parameters are inconclusive. Right Ventricle Right atrium and right ventricle mildly enlarged with normal contractility. Aortic Valve Aortic valve is thickened and calcified, mean gradient across valve is 12 mmHg, which represents mild aortic stenosis, there is mild aortic insufficiency. Mitral Valve Mitral valve leaflets are minimally thickened and calcified, there is no mitral stenosis, there is mild mitral regurgitation. Tricuspid Valve Tricuspid valve grossly normal, there is mild tricuspid regurgitation, tricuspid regurgitation jet velocity is inadequate for calculation of the right ventricular systolic pressure. Pulmonic Valve Pulmonic valve is poorly visualized. Great Vessels Aortic root is normal size. Pericardium No significant pericardial effusion noted. Conclusion 1. Normal left ventricular size, mild concentric left ventricular hypertrophy, moderately reduced left ventricular systolic function, visually estimated ejection fraction 40% with left ventricle globally hypokinetic, diastolic parameters are inconclusive. 2. Thickened and calcified aortic valve with mild aortic stenosis and mild aortic insufficiency. 3. Mild mitral and tricuspid regurgitation. 4. No significant pericardial effusion noted. Electronically signed by : Rony Farooq MD 12/20/2020 22:03:22
== END ==
PROVIDERS: PCP Internal Medicine Adolescent Medicine; Visit Provider Internal Medicine Adolescent Medicine
DX: R01.1 Cardiac murmur, unspecified (principal); I51.7 Cardiomegaly
CPT/HCPCS: 93306

== ENCOUNTER 2021-02-08 03:00 | Inpatient (IN) | payer MEDICARE, MEDICAID, SELFPAY ==
[2021-02-08] VITALS (32 sets, daily range): BP systolic 120–194; BP diastolic 49–107; PULSE 48–69; RESP 14–20; TEMP 36.6–37.2; O2SAT 95–99; BMI 22.7; BMI 20.4
--- NOTE | 2021-02-08 03:39 | ECG_ITS ---
APPROVED REPORT Exam: Resting ECG HR:71 bpm ECG Measurements Heart Rate 71 AXES AZ 162 P 62 QRSd 158 QRS -55 QT 458 T 122 QTc 497 Conclusion Normal sinus rhythm Left axis deviation Left bundle branch block Abnormal ECG Electronically signed by : Emiliano Rosario MD 02/10/2021 17:51:55
--- NOTE | 2021-02-08 03:41 | CT_ITS ---
PROCEDURE INFORMATION: Exam: CT Abdomen And Pelvis With Contrast Exam date and time: 02/08/2021 3:41 AM Age: 75 years old Clinical indication: Abdominal tenderness and other: Gi bleed; Additional info: Blood in stool TECHNIQUE: Imaging protocol: Computed tomography of the abdomen and pelvis with contrast. Total images: 356 Radiation optimization: All CT scans at this facility use at least one of these dose optimization techniques: automated exposure control; mA and/or kV adjustment per patient size (includes targeted exams where dose is matched to clinical indication); or iterative reconstruction. Contrast material: ISOVUE; Contrast volume: 75 ml; Contrast route: IV; COMPARISON: CT ANGIO CHEST PE PROTOCOL 12/01/2020 9:04 AM FINDINGS: Lungs: There is subsegmental bibasilar atelectasis. Heart: Left ventricular hypertrophy suspected. Left ventricular papillary muscle calcifications likely indicate remote myocardial infarct. Coronary arteries: Calcific coronary artery disease is evident. Liver: Ovoid 9 x 14 mm low-density focus in the lateral segment left hepatic lobe remains unchanged and nonspecific but statistically favoring benign cyst. Gallbladder and bile ducts: Normal. No calcified stones. No ductal dilation. Pancreas: The pancreatic duct is prominent but there is no evidence of acute pancreatitis. Spleen: Normal. No splenomegaly. Adrenal glands: Normal. No mass. Kidneys and ureters: Normal. No hydronephrosis. Stomach and bowel: Colonic diverticulosis is present without diverticulitis. Question mild infectious/inflammatory colitis. Appendix: Normal appendix. Intraperitoneal space: Unremarkable. No free air. No significant fluid collection. Vasculature: Narrowing of the origin of the celiac axis is likely related to compression by the median arcuate ligament. 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 Lymph nodes: Unremarkable. No enlarged lymph nodes. Urinary bladder: Unremarkable as visualized. Reproductive: Prostatomegaly noted. Bones/joints: Moderate disc space height loss at L4-S1. Soft tissues: Unremarkable. Other findings: Incidental pelvic phlebolith formation. IMPRESSION: 1. Mild infectious/inflammatory colitis is questioned in the splenic flexure of the colon. No active bleeding suspected. 2. Normal appendix. 3. Colonic diverticulosis is present without diverticulitis. 4. Ovoid 9 x 14 mm low-density focus in the lateral segment left hepatic lobe remains unchanged and nonspecific but statistically favoring benign cyst. Recommend attention on any followup exams.
[2021-02-08 03:52] LABS: Occult Blood,Stool Positive (Negative)
--- NOTE | 2021-02-08 03:56 | HMH.EDGIBL ---
ED Disposition Clinical Impression: Lower gastrointestinal hemorrhage, Vasovagal episode, Left bundle branch block (LBBB), KAVIN (acute kidney injury), Elevated troponin Disposition: Admitted as Observation Condition on Discharge: Good Instructions: DI for Gastrointestinal Bleeding Referrals: Emiliano Rosario MD [Primary Care Provider] - - Critical Care Critical Care Time: No Attestation: On 02/08/21, the high probability of a clinically significant, sudden or life threatening deterioration of the following system(s) required my full and direct attention, intervention and personal management. The time I documented below is in addition to time spent performing reported procedures but includes the following listed in this critical care notation. Medical Decision Making - Medical Records Medical records reviewed: Yes: I reviewed the patient's medical records. - Hugh Inquiry Pt receiving controlled substance: No Vital Signs: 02/08/21 03:01 02/08/21 04:30 Temperature 97.9 F Temperature Source Oral Pulse Rate 49 L Pulse Rate [Left] 69 Respiratory Rate 18 17 Blood Pressure 120/50 L Blood Pressure [Right Arm] 143/68 H Blood Pressure Mean [Right Arm] 93 Blood Pressure Source [Right Arm] Automatic Cuff 02 Sat by Pulse Oximetry 99 96 Oxygen Delivery Method Room Air - Lab Data Lab results reviewed: Yes: I reviewed the patient's lab results. Lab Results 02/08/21 03:08: Stool Occult Blood Positive A 02/08/21 03:08: WBC 13.7 H, RBC 4.25 L, Hgb 13.5 L, Hct 41.8 L, MCV 98.3 H, MCH 31.7 H, MCHC 32.3, RDW 13.4, Plt Count 424, MPV 8.3, Neut % (Auto) 64.5, Lymph % (Auto) 18.3, [place] % (Auto) 5.8, Eos % (Auto) 10.6, Baso % (Auto) 0.8, Neut # (Auto) 8.8 H, Lymph # (Auto) 2.5, [place] # (Auto) 0.8, Eos # (Auto) 1.5 H, Baso # (Auto) 0.1, ESR 20 02/08/21 03:08: Sodium 134 L, Potassium 4.3, Chloride 103, Carbon Dioxide 23, Anion Gap 12.3, BUN 26 H, Creatinine 1.50 H, Estimated Creat Clear 40, Estimated GFR 46 L, Est GFR ( Amer) 55 L, Glucose 121 H, Calcium 9.0, Magnesium 1.9, Total Bilirubin 0.3, AST 25, ALT 14, Alkaline Phosphatase 100, Troponin I 0.09 H, C-Reactive Protein 49.2 H, Total Protein 7.3 D, Albumin 4.0, Globulin 3.3 H, Albumin/Globulin Ratio 1.2, Amylase 101, Lipase 183, Procalcitonin 0.122 Result diagrams: 02/08/21 03:08 02/08/21 03:08 Orders (Tests/Meds): ED MEDICATIONS Generic Name Dose Route Start Last Admin Trade Name Freq PRN Reason Stop Dose Admin Pantoprazole Sodium 80 mg/ 100 mls @ 10 mls/hr 02/08/21 03:45 02/08/21 03:50 Sodium Chloride IV 02/11/21 03:44 10 mls/hr .Q10H LINDA Administration Discontinued Medications Generic Name Dose Route Start Last Admin Trade Name Freq PRN Reason Stop Dose Admin Sodium Chloride 1,000 mls @ 999 mls/hr 02/08/21 03:45 02/08/21 03:51 Sod Chlor 0.9% 1000ml Bag IV 02/08/21 04:45 999 mls/hr .Q1H1M LINDA Administration Iopamidol 75 ml 02/08/21 05:30 02/08/21 05:31 Iopamidol-370 (76%);100ml Bottle IV 02/08/21 05:31 75 ml ONCE ONE Administration Sodium Chloride 10 ml 02/08/21 05:30 02/08/21 05:31 Sodium Chloride 0.9% 10ml Syr (Rad Only) IV 02/08/21 05:31 10 ml ONCE ONE Administration ORDERS Category Date Time Status Lactic Acid Stat Lab 02/08/21 06:51 Ordered Rapid PCR Covid and Flu A/B Stat Lab 02/08/21 03:08 Received Troponin I Q3H Lab 02/08/21 06:45 Ordered Troponin I Q3H Lab 02/08/21 09:45 Ordered Urinalysis and Microscopic Stat Lab 02/08/21 03:41 Ordered - CT Data CT Scan: Abdomen, Pelvis Time Received: 07:[address] Reviewed: Yes: I have viewed the radiologist's interpretation Preliminary Findings: Abnormal (see report ) - ECG Data Tracing #1 Normal Sinus Rhythm: Yes Ischemic changes: non-specific ST-T wave changes Conduction abnormalities present: LBBB ECG compared to prior tracings: there are no significant changes - Physician Consults Physician Consulted: rocio Reason -:
[2021-02-08 03:58] LABS: Alanine Aminotransferase 14 U/L (12-78); Albumin/Globulin Ratio 1.2 (1.1-1.8); Alkaline Phosphatase 100 U/L (38-126); Amylase 101 U/L (30-110); Anion Gap 12.3 mEq/L (5-15); Aspartate Amino Transferase 25 U/L (17-59); Bilirubin,Total 0.3 mg/dl (0.2-1.3); Blood Urea Nitrogen 26 mg/dl (9-20); Carbon Dioxide 23 mmol/L (22.0-30.0); Chloride 103 mmol/L (98-107); Creatinine Clearance Estimated 40 mL/min (50-200); Estimated Glomerular Filt Rate 46 ml/min (>60); GFR (African American) 55 ML/MIN (>60); Globulin 3.3 g/dL (1.3-3.2); Glucose 121 mg/dl (74-100); Lipase 183 U/L (23-300); Magnesium 1.9 mg/dl (1.6-2.3); Potassium 4.3 mmoL/L (3.5-5.1); Sodium 134 mmol/L (136-145); Total Protein,Serum 7.3 g/dl (6.3-8.2)
[2021-02-08 04:02] LABS: Basophils # 0.1 K/mm3 (0-0.2); Basophils % 0.8 % (0.1-2.0); Eosinophils # 1.5 K/mm3 (0.0-0.4); Eosinophils % 10.6 % (0.1-12.0); Hematocrit 41.8 % (42.0-52.0); Hemoglobin 13.5 g/dL (14.1-18.0); Lymphocytes # 2.5 K/mm3 (0.7-4.5); Lymphocytes % 18.3 % (10-50); Mean Corpuscular HGB Conc 32.3 g/dL (31.8-35.4); Mean Corpuscular Hemoglobin 31.7 pg (27.0-31.2); Mean Corpuscular Volume 98.3 fl (80-94); Mean Platelet Volume 8.3 fl (7.4-10.4); Monocytes # 0.8 K/mm3 (0.1-1.0); Monocytes % 5.8 % (1.7-9.3); Neutrophils # 8.8 K/mm3 (1.8-7.8); Neutrophils % 64.5 % (37.0-80.0); Platelet Count 424 K/mm3 (142-424); Red Blood Count 4.25 M/mm3 (4.60-6.20); Red Cell Distribution Width 13.4 % (11.5-17.5); White Blood Count 13.7 K/mm3 (4.8-10.8)
[2021-02-08 04:05] LABS: C-Reactive Protein 49.2 mg/L (0-4)
[2021-02-08 04:14] LABS: Troponin I 0.09 ng/ml (0.00-0.034)
--- NOTE | 2021-02-08 04:15 | CT_ITS ---
PROCEDURE INFORMATION: Exam: CT Cervical Spine Without Contrast Exam date and time: 02/08/2021 4:15 AM Age: 75 years old Clinical indication: Neck pain; Patient HX: Syncope; Additional info: Fall TECHNIQUE: Imaging protocol: Computed tomography images of the cervical spine without contrast. 3D rendering (Not supervised by radiologist): MIP and/or 3D reconstructed images were created by the technologist. Radiation optimization: All CT scans at this facility use at least one of these dose optimization techniques: automated exposure control; mA and/or kV adjustment per patient size (includes targeted exams where dose is matched to clinical indication); or iterative reconstruction. COMPARISON: CT ANGIO CHEST PE PROTOCOL 12/01/2020 9:04 AM FINDINGS: Bones/joints: No malalignment. No acute fracture. Discs/Spinal canal/Neural foramina: Degenerative disc disease is most advanced at C4-C5 and C6-C7. No high-grade canal stenosis . Uncovertebral spurring contributes to mild to moderate neural foraminal stenosis at C4-C5 on the left and C5-C6 on the left. Lungs: Pleural calcifications at the apices. Background of mild emphysematous changes in the lungs. Soft tissues: Unremarkable. IMPRESSION: No acute fracture or traumatic malalignment.
--- NOTE | 2021-02-08 04:15 | CT_ITS ---
PROCEDURE INFORMATION: Exam: CT Head Without Contrast Exam date and time: 02/08/2021 4:15 AM Age: 75 years old Clinical indication: Syncope and collapse; Additional info: Fall +loc TECHNIQUE: Imaging protocol: Computed tomography of the head without contrast. 3D rendering (Not supervised by radiologist): MIP and/or 3D reconstructed images were created by the technologist. Radiation optimization: All CT scans at this facility use at least one of these dose optimization techniques: automated exposure control; mA and/or kV adjustment per patient size (includes targeted exams where dose is matched to clinical indication); or iterative reconstruction. COMPARISON: No relevant prior studies available. FINDINGS: Brain: Patchy hypoattenuation in the periventricular and subcortical white matter, consistent with chronic small vessel ischemia. No acute hemorrhage. No mass effect. Cerebral ventricles: No ventriculomegaly. Paranasal sinuses: Visualized sinuses are unremarkable. No fluid levels. Mastoid air cells: Visualized mastoid air cells are well aerated. Vasculature: Intracranial atherosclerosis. Bones/joints: Unremarkable. No acute fracture. Soft tissues: Unremarkable. IMPRESSION: No acute intracranial abnormality. Please note that MRI is more sensitive for early changes of acute ischemia.
--- NOTE | 2021-02-08 04:15 | XR_ITS ---
PROCEDURE INFORMATION: Exam: XR Chest Exam date and time: 02/08/2021 4:15 AM Age: 75 years old Clinical indication: Other: Syncope; Additional info: Fall TECHNIQUE: Imaging protocol: XR of the chest. Views: 4 or more views. Total images: 2 COMPARISON: CR XR CHEST PORTABLE 12/02/2020 6:33 AM FINDINGS: Lungs: Unremarkable. No consolidation. Pleural spaces: Biapical pleural calcifications. Heart/Mediastinum: Unremarkable. No cardiomegaly. Vasculature: Atherosclerosis is evident. Bones/joints: Unremarkable. IMPRESSION: No acute process identified.
--- NOTE | 2021-02-08 04:15 | XR_ITS ---
PROCEDURE INFORMATION: Exam: XR Pelvis Exam date and time: 02/08/2021 4:15 AM Age: 75 years old Clinical indication: Other: Syncope; Additional info: Fall TECHNIQUE: Imaging protocol: XR pelvis. Views: 1 or 2 view. Total images: 2 COMPARISON: CT ABDOMEN PELVIS W CON 02/08/2021 4:50 AM FINDINGS: Bones/joints: Moderate disc space height loss at L4-S1. Soft tissues: Unremarkable. Organs: Urinary contrast material present at the time of imaging. IMPRESSION: No acute fracture identified.
[2021-02-08 04:18] LABS: Procalcitonin 0.122 ng/mL (0.0-2.0)
[2021-02-08 04:56] LABS: Erythrocyte Sedimentation Rate 20 mm/hr (0-20)
--- NOTE | 2021-02-08 05:12 | PC.NURSE ---
patient in CT
[2021-02-08 05:59] LABS: Coronavirus 19, PCR Not Detected (NotDetected); Influenza A, PCR Not Detected (NotDetected); Influenza B, PCR Not Detected (NotDetected)
--- NOTE | 2021-02-08 06:50 | PC.NURSE ---
Dr. Tobias Youssef for admission, house notified for bed assignment. Pt has a delvalle bed at this time.
--- NOTE | 2021-02-08 07:00 | PC.NURSE ---
Addendum entered by Alexandra Lawson RN 02/08/21 07:39: Also checked that lab has received 2nd troponin. It is pending, they have the specimen. Original Note: called for time left on covid swab, eta 20 min.
--- NOTE | 2021-02-08 07:34 | PC.NURSE ---
@ 0400 pt found in floor, awake and stating I think I passed out . Pt was covered in bloody stool and pants around ankles. Pt denies any pain, no open wounds, no redness/bruising, and pt able to move all limbs without difficulty. Pt does not know if he hit his head. Dr. Collado & dry house attendant notified immediately . VO placed for head and neck ct wo, cxr, pelvis xr.
--- NOTE | 2021-02-08 07:57 | HMH.PHAINT ---
MEDICATION RECONCILIATION COMPLETE USING INFORMATION FROM SURESCRIPT AND ED DISCHARGE PAPERWORK
[2021-02-08 08:04] LABS: Lactic Acid 0.7 mmol/L (0.7-2.1)
[2021-02-08 09:14] LABS: Troponin I 0.09 ng/ml (0.00-0.034)
--- NOTE | 2021-02-08 09:21 | ECG_ITS ---
APPROVED REPORT Exam: Resting ECG HR:58 bpm ECG Measurements Heart Rate 58 AXES ID 162 P 78 QRSd 164 QRS -32 QT 526 T 178 QTc 516 Conclusion Sinus bradycardia with premature atrial complexes with aberrant conduction Possible Left atrial enlargement Left axis deviation Left bundle branch block Abnormal ECG Electronically signed by : Emiliano Rosario MD 02/10/2021 17:51:44
--- NOTE | 2021-02-08 09:25 | HMH.PHAVTE ---
[facility] Pharmacy VTE Monitoring - Patient Demographics Admission date: 02/08/21 Report Date: 02/08/21 Time: 09:25 Allergies/Adverse Reactions: Patient Allergies No Known Allergies Allergy (Unverified 12/01/20 12:02) Height: 1.7 m Weight: 65.771 kg Patient Problems: Current Active Problems Lower gastrointestinal hemorrhage (Acute) Vasovagal episode (Acute) Left bundle branch block (LBBB) (Acute) KAVIN (acute kidney injury) (Acute) Elevated troponin (Acute) - VTE Risk Labs: VTE Related Lab Results Hgb 13.5 g/dL (14.1-18.0) L 02/08/21 03:08 Hct 41.8 % (42.0-52.0) L 02/08/21 03:08 Plt Count 424 K/mm3 (142-424) 02/08/21 03:08 BUN 26 mg/dl (9-20) H 02/08/21 03:08 Creatinine 1.50 mg/dl (0.66-1.25) H 02/08/21 03:08 Estimated Creat Clear 40 mL/min (50-200) 02/08/21 03:08 Clinical Trial Participant: No - Prophylaxis VTE Prophylaxis Ordered?: Yes Types of VTE Prophylaxis: TEDS Knee High
[2021-02-08 10:29] LABS: Troponin I 0.08 ng/ml (0.00-0.034)
[2021-02-08 11:26] LABS: Basophils # 0.1 K/mm3 (0-0.2); Basophils % 0.6 % (0.1-2.0); Eosinophils # 0.5 K/mm3 (0.0-0.4); Hematocrit 32.6 % (42.0-52.0); Lymphocytes # 1.5 K/mm3 (0.7-4.5); Lymphocytes % 16.1 % (10-50); Mean Corpuscular HGB Conc 33.4 g/dL (31.8-35.4); Mean Corpuscular Hemoglobin 31.8 pg (27.0-31.2); Mean Corpuscular Volume 95.3 fl (80-94); Mean Platelet Volume 8.1 fl (7.4-10.4); Monocytes # 0.4 K/mm3 (0.1-1.0); Monocytes % 3.9 % (1.7-9.3); Neutrophils # 6.6 K/mm3 (1.8-7.8); Neutrophils % 73.4 % (37.0-80.0); Platelet Count 278 K/mm3 (142-424); Red Blood Count 3.42 M/mm3 (4.60-6.20); Red Cell Distribution Width 13.5 % (11.5-17.5)
[2021-02-08 11:48] LABS: Hemoglobin 10.9 g/dL (14.1-18.0)
--- NOTE | 2021-02-08 11:52 | PC.NURSE ---
Assisted pt with repositioning in bed. No new needs at this time.
--- NOTE | 2021-02-08 12:00 | PC.NURSE ---
Called Dr. Mendez. Jr advised he was in a room and she would have him call me back.
--- NOTE | 2021-02-08 12:41 | PC.NURSE ---
per housekeeping/laundry supervisor pt has a bed assignment, states the room is being cleaned and they will call to notify us when room is ready.
--- NOTE | 2021-02-08 13:45 | PC.NURSE ---
Spoke with Dr. Mendez and asked if patient needed a surgery consult. He advised he did and he would placed the order. I also advised Dr. Mendez that pt was beginning to be hypertensive and if he wanted me to give him any of his b/p meds. Dr. Mendez advised to give 5mg of amlodipine. Repeated and verified orders with Dr. Mendez. I told Dr. Mendez pt would be going to the floor shortly, he advised he would go see the patient when he got up to the floor.
--- NOTE | 2021-02-08 14:51 | PC.NURSE ---
Called report to Mauro on the floor.
--- NOTE | 2021-02-08 15:24 | PC.NURSE ---
pt arrived to the floor at this time
--- NOTE | 2021-02-08 16:38 | PC.NURSE ---
Dr. avendano notifed of consult
[2021-02-08 17:08] LABS: Basophils # 0.1 K/mm3 (0-0.2); Basophils % 0.4 % (0.1-2.0); Eosinophils # 0.6 K/mm3 (0.0-0.4); Eosinophils % 5.7 % (0.1-12.0); Hematocrit 31.7 % (42.0-52.0); Hemoglobin 10.4 g/dL (14.1-18.0); Lymphocytes # 1.4 K/mm3 (0.7-4.5); Lymphocytes % 13.1 % (10-50); Mean Corpuscular HGB Conc 32.9 g/dL (31.8-35.4); Mean Corpuscular Hemoglobin 31.5 pg (27.0-31.2); Mean Corpuscular Volume 95.8 fl (80-94); Mean Platelet Volume 8.6 fl (7.4-10.4); Monocytes # 0.4 K/mm3 (0.1-1.0); Monocytes % 3.9 % (1.7-9.3); Neutrophils # 8.2 K/mm3 (1.8-7.8); Neutrophils % 76.9 % (37.0-80.0); Platelet Count 294 K/mm3 (142-424); Red Blood Count 3.31 M/mm3 (4.60-6.20); Red Cell Distribution Width 13.5 % (11.5-17.5); White Blood Count 10.6 K/mm3 (4.8-10.8)
--- NOTE | 2021-02-08 17:13 | HMH.GSCON ---
*Admission Date: 02/08/21 *Reason for consult:: Lower GI bleed *History of present illness: Patient is a 75-year-old male with a history of left bundle branch block, hypertension, aortic valve disease. He states that approximately midnight he had developed several episodes of symptoms consistent with hematochezia with bright red blood per rectum. Reportedly he experienced a syncopal episode. Patient reports similar episode in the mid at which time he was evaluated at [facility]. He possibly underwent endoscopy. The exact details are unknown. He has had no subsequent problems. He has not had a colonoscopy subsequently. Denies any history of ulcer disease. He does state that he has had some constipation recently. Review of Systems - Review of Systems Review of systems:: pertinent systems reviewed and negative unless documented below - *Neurologic Denies localized weakness, Denies seizure-like activity [facility] History I have reviewed the patient's past medical history: Yes Medical History: Denies:: Atrial Fibrillation, Congestive Heart Failure, Chronic Obstructive Pulmonary Disease (COPD), Coronary Artery Disease, Diabetes Mellitus Type 1, Diabetes Mellitus Type 2, Gastroesophageal Reflux Disease(GERD), Hypertension *Have you ever received a pneumonia vaccine?: Yes *Have you received a flu vaccine this season?: Yes - *Social History Smoking Status: Current every day smoker Tobacco Type: cigarettes # Packs/Day (cigarettes): 1 Alcohol Intake: never *Occupational Status:: retired Household Members: none *Travel in the last 8 weeks: None Family Hx:: No significant family history Meds Home Medications Medication Instructions Recorded Confirmed Type Amlodipine Besylate [Norvasc 5mg 5 mg PO DAILY 02/08/21 02/08/21 History tablet] Metoprolol Succinate [Metoprolol 50 mg PO DAILY 02/08/21 02/08/21 History Succinate 50mg Tablet*] buPROPion HCL [Bupropion Xl] 150 mg PO DAILY 02/08/21 02/08/21 History hydroCHLOROthiazide [HCTZ 25mg 25 mg PO DAILY 02/08/21 02/08/21 History tab] lisinopriL [Lisinopril] 20 mg PO DAILY 02/08/21 02/08/21 History Allergies Allergy/AdvReac Type Severity Reaction Status Date / Time No Known Allergies Allergy Verified 02/08/21 14:47 Exam Vital signs and Labs for Last 24 Hours: Temp Pulse Resp BP Pulse Ox 98.3 F 58 L 19 194/63 H 98 02/08/21 16:00 02/08/21 16:00 02/08/21 16:00 02/08/21 16:00 02/08/21 16:00 Laboratory Results - last 24 hr 02/08/21 03:08: Stool Occult Blood Positive A 02/08/21 03:08: WBC 13.7 H, RBC 4.25 L, Hgb 13.5 L, Hct 41.8 L, MCV 98.3 H, MCH 31.7 H, MCHC 32.3, RDW 13.4, Plt Count 424, MPV 8.3, Neut % (Auto) 64.5, Lymph % (Auto) 18.3, [place] % (Auto) 5.8, Eos % (Auto) 10.6, Baso % (Auto) 0.8, Neut # (Auto) 8.8 H, Lymph # (Auto) 2.5, [place] # (Auto) 0.8, Eos # (Auto) 1.5 H, Baso # (Auto) 0.1, ESR 20 02/08/21 03:08: Sodium 134 L, Potassium 4.3, Chloride 103, Carbon Dioxide 23, Anion Gap 12.3, BUN 26 H, Creatinine 1.50 H, Estimated Creat Clear 40, Estimated GFR 46 L, Est GFR ( Amer) 55 L, Glucose 121 H, Calcium 9.0, Magnesium 1.9, Total Bilirubin 0.3, AST 25, ALT 14, Alkaline Phosphatase 100, Troponin I 0.09 H, C-Reactive Protein 49.2 H, Total Protein 7.3 D, Albumin 4.0, Globulin 3.3 H, Albumin/Globulin Ratio 1.2, Amylase 101, Lipase 183, Procalcitonin 0.122 02/08/21 03:08: SARS-CoV-2 (PCR) Not detected, Influenza A Untype (PCR) Not detected, Influenza Type B (PCR) Not detected 02/08/21 06:55: Lactate 0.7 02/08/21 08:36: Troponin I 0.09 H 02/08/21 09:45: Troponin I 0.08 H 02/08/21 11:18: WBC 9.0 D, RBC 3.42 L, Hgb 10.9 L D, Hct 32.6 L, MCV 95.3 H, MCH 31.8 H, MCHC 33.4, RDW 13.5, Plt Count 278 D, MPV 8.1, Neut % (Auto) 73.4, Lymph % (Auto) 16.1, [place] % (Auto) 3.9, Eos % (Auto) 6.0, Baso % (Auto) 0.6, Neut # (Auto) 6.6, Lymph # (Auto) 1.5, [place] # (Auto) 0.4, Eos # (Auto) 0.5 H, Baso # (Auto) 0.1 02/08/21 16:53: Crossmatch (AHG) See Detail
--- NOTE | 2021-02-08 17:25 | PC.NURSE ---
PT IS AOX4, ABLE TO MAKE NEEDS KNOWN TO STAFF, HE HAS NOT REQUIRED O2 SUPPORT. REMAINED NPO SINCE ARRIVING TO FLOOR, DR ROWE SAW PT AND ORDERED CLD/NPO @ MIDNIGHT TONIGHT. NO BM THUS FAR. PT DENIES N/V. NO PAIN VOICED. PT WAS HYPERTENSIVE DURING [address] LOMELI MADE AWARE. HOME DOSE OF LISINOPRIL 20 MG ORDERED. PT IS A POOR HISTORIAN BUT DID RECALL GI BLEED IN PAST AND THAT HE HAS HYPERTENSION.
--- NOTE | 2021-02-08 17:55 | HMH.HP ---
*Admission Date: 02/08/21 *Chief complaint: bloody stools *History of present illness: Mr. Fraser is a pleasant 75-year-old male with minimal contact with the medical community until 2 months ago when he was admitted for pneumonia. At that time found to have significant elevation in blood pressure necessitating initiation of multiple medications. This morning states he had an episode of feeling the urge to go to the bathroom. When he had a bowel movement it was frankly bloody at home. Denies any nausea, abdominal pain, fever, chest pain. No previous episodes of similar melena or hematochezia. Work-up in the ER consisted of scans of his abdomen, head, chest. Noted to have inflammation of splenic flexure of colon. No maria fernanda source on imaging for bleeding. Initial hemoglobin normal at 13 however repeat labs have shown a drop to a level of 10. Multiple other small bloody bowel movements since being in the ER and admitted. Admitted to medicine for further management. On assessment after arriving to the floor, patient has had an additional large bloody bowel movement. Appears in no acute distress however. at bedside. Blood pressures have continued to be elevated through the day. Given a dose of lisinopril this afternoon, will monitor closely for improvement in his blood pressure. [facility] History I have reviewed the patient's past medical history: Yes Medical History: Reports:: Heart Murmur, Hypertension Denies:: Atrial Fibrillation, Congestive Heart Failure, Chronic Obstructive Pulmonary Disease (COPD), Coronary Artery Disease, Diabetes Mellitus Type 1, Diabetes Mellitus Type 2, Gastroesophageal Reflux Disease(GERD) *Have you ever received a pneumonia vaccine?: No *Have you received a flu vaccine this season?: No - *Social History Last grade of school completed: High school graduate Smoking Status: Current every day smoker Tobacco Type: cigarettes # Packs/Day (cigarettes): 1 Alcohol Intake: never *Occupational Status:: retired Housing: house Household Members: spouse *Travel in the last 8 weeks: None Family Hx:: No significant family history Review of Systems - Review of Systems Review of systems:: pertinent systems reviewed and negative unless documented below (14 point review of systems performed, pertinent positives and negatives as per HPI) - *Neurologic Denies localized weakness, Denies seizure-like activity Meds Home Medications Medication Instructions Recorded Confirmed Type Amlodipine Besylate [Norvasc 5mg 5 mg PO DAILY 02/08/21 02/08/21 History tablet] Metoprolol Succinate [Metoprolol 50 mg PO DAILY 02/08/21 02/08/21 History Succinate 50mg Tablet*] buPROPion HCL [Bupropion Xl] 150 mg PO DAILY 02/08/21 02/08/21 History hydroCHLOROthiazide [HCTZ 25mg 25 mg PO DAILY 02/08/21 02/08/21 History tab] lisinopriL [Lisinopril] 20 mg PO DAILY 02/08/21 02/08/21 History Allergies Allergy/AdvReac Type Severity Reaction Status Date / Time No Known Allergies Allergy Verified 02/08/21 14:47 Exam Vital signs and Labs for Last 24 Hours: Temp Pulse Resp BP Pulse Ox 98.3 F 58 L 19 194/63 H 98 02/08/21 16:00 02/08/21 16:00 02/08/21 16:00 02/08/21 16:00 02/08/21 16:00 Laboratory Results - last 24 hr 02/08/21 03:08: Stool Occult Blood Positive A 02/08/21 03:08: WBC 13.7 H, RBC 4.25 L, Hgb 13.5 L, Hct 41.8 L, MCV 98.3 H, MCH 31.7 H, MCHC 32.3, RDW 13.4, Plt Count 424, MPV 8.3, Neut % (Auto) 64.5, Lymph % (Auto) 18.3, [place] % (Auto) 5.8, Eos % (Auto) 10.6, Baso % (Auto) 0.8, Neut # (Auto) 8.8 H, Lymph # (Auto) 2.5, [place] # (Auto) 0.8, Eos # (Auto) 1.5 H, Baso # (Auto) 0.1, ESR 20 02/08/21 03:08: Sodium 134 L, Potassium 4.3, Chloride 103, Carbon Dioxide 23, Anion Gap 12.3, BUN 26 H, Creatinine 1.50 H, Estimated Creat Clear 40, Estimated GFR 46 L, Est GFR ( Amer) 55 L, Glucose 121 H, Calcium 9.0, Magnesium 1.9, Total Bilirubin 0.3, AST 25, ALT 14, Alkaline Phosphatase 100, Troponin I 0.09
[2021-02-09] VITALS (26 sets, daily range): BP systolic 116–176; BP diastolic 53–90; PULSE 54–77; RESP 16–20; TEMP 36.4–37.1; O2SAT 91–99; BMI 20.4
[2021-02-09 04:09] LABS: Hematocrit 37.6 % (42.0-52.0); Hemoglobin 12.4 g/dL (14.1-18.0)
--- NOTE | 2021-02-09 05:08 | PC.NURSE ---
Pt recieved two units of packed RBCs. First one given at 20:35 verified with Indy Myrick RN, completed at 23:15. All vitals charted pt tolerated well.
--- NOTE | 2021-02-09 05:33 | PC.NURSE ---
Pt A&OX4, has rested well t/o the night. He has had two units of packed RBCs and tolerated well. No c/o of pain and reports no bloody stools this shift. Currently NPO since midnight due to procedure later this morning. Call khan within reach and will continue to monitor.
--- NOTE | 2021-02-09 06:15 | PC.NURSE ---
James GRANADOS NOTIFIED OF CONSULT
[2021-02-09 06:57] LABS: Basophils # 0.1 K/mm3 (0-0.2); Basophils % 0.7 % (0.1-2.0); Eosinophils % 13.1 % (0.1-12.0); Hematocrit 36.9 % (42.0-52.0); Hemoglobin 12.5 g/dL (14.1-18.0); Lymphocytes # 1.5 K/mm3 (0.7-4.5); Lymphocytes % 20.1 % (10-50); Mean Corpuscular HGB Conc 33.9 g/dL (31.8-35.4); Mean Corpuscular Hemoglobin 31.3 pg (27.0-31.2); Mean Corpuscular Volume 92.3 fl (80-94); Mean Platelet Volume 9.1 fl (7.4-10.4); Monocytes # 0.5 K/mm3 (0.1-1.0); Monocytes % 6.2 % (1.7-9.3); Neutrophils # 4.6 K/mm3 (1.8-7.8); Neutrophils % 59.9 % (37.0-80.0); Platelet Count 242 K/mm3 (142-424); Red Blood Count 3.99 M/mm3 (4.60-6.20); Red Cell Distribution Width 14.4 % (11.5-17.5); White Blood Count 7.6 K/mm3 (4.8-10.8)
[2021-02-09 07:01] LABS: Chloride 106 mmol/L (98-107); Potassium 4.1 mmoL/L (3.5-5.1); Sodium 133 mmol/L (136-145)
[2021-02-09 07:04] LABS: Anion Gap 8.1 mEq/L (5-15); Blood Urea Nitrogen 19 mg/dl (9-20); Calcium 8.4 mg/dl (8.4-10.2); Carbon Dioxide 23 mmol/L (22.0-30.0); Creatinine Clearance Estimated 48 mL/min (50-200); Estimated Glomerular Filt Rate 65 ml/min (>60); GFR (African American) 79 ML/MIN (>60); Glucose 91 mg/dl (74-100)
--- NOTE | 2021-02-09 08:23 | HMH.ACPN2 ---
Internal Medicine - PN: Subj *Date: 02/09/21 *Time: 08:23 Interval history: Overall patient feels better. Received 2 units of packed cells yesterday because of ongoing active GI bleeding and hemoglobin dropped over 3 points from his baseline. No further red blood per rectum today. Breathing easily. Exam Vital signs and Labs for Last 24 Hours: Temp Pulse Resp BP Pulse Ox 97.9 F 77 19 158/54 H 94 L 02/09/21 04:00 02/09/21 04:00 02/09/21 04:00 02/09/21 04:00 02/09/21 04:00 Laboratory Results - last 24 hr 02/08/21 08:36: Troponin I 0.09 H 02/08/21 09:45: Troponin I 0.08 H 02/08/21 11:18: WBC 9.0 D, RBC 3.42 L, Hgb 10.9 L D, Hct 32.6 L, MCV 95.3 H, MCH 31.8 H, MCHC 33.4, RDW 13.5, Plt Count 278 D, MPV 8.1, Neut % (Auto) 73.4, Lymph % (Auto) 16.1, [place] % (Auto) 3.9, Eos % (Auto) 6.0, Baso % (Auto) 0.6, Neut # (Auto) 6.6, Lymph # (Auto) 1.5, [place] # (Auto) 0.4, Eos # (Auto) 0.5 H, Baso # (Auto) 0.1 02/08/21 16:53: Blood Type A Positive, Antibody Screen Negative, Crossmatch (AHG) See Detail 02/08/21 16:53: WBC 10.6, RBC 3.31 L, Hgb 10.4 L, Hct 31.7 L, MCV 95.8 H, MCH 31.5 H, MCHC 32.9, RDW 13.5, Plt Count 294, MPV 8.6, Neut % (Auto) 76.9, Lymph % (Auto) 13.1, [place] % (Auto) 3.9, Eos % (Auto) 5.7, Baso % (Auto) 0.4, Neut # (Auto) 8.2 H, Lymph # (Auto) 1.4, [place] # (Auto) 0.4, Eos # (Auto) 0.6 H, Baso # (Auto) 0.1 02/08/21 16:53: Blood Type Confirm A Positive 02/09/21 03:20: Hgb 12.4 L D, Hct 37.6 L 02/09/21 05:59: WBC 7.6 D, RBC 3.99 L, Hgb 12.5 L, Hct 36.9 L, MCV 92.3, MCH 31.3 H, MCHC 33.9, RDW 14.4, Plt Count 242, MPV 9.1, Neut % (Auto) 59.9, Lymph % (Auto) 20.1, [place] % (Auto) 6.2, Eos % (Auto) 13.1 H, Baso % (Auto) 0.7, Neut # (Auto) 4.6, Lymph # (Auto) 1.5, [place] # (Auto) 0.5, Eos # (Auto) 1.0 H, Baso # (Auto) 0.1 02/09/21 05:59: Sodium 133 L, Potassium 4.1, Chloride 106, Carbon Dioxide 23, Anion Gap 8.1, BUN 19 D, Creatinine 1.10 D, Estimated Creat Clear 48, Estimated GFR 65, Est GFR ( Amer) 79 D, Glucose 91, Calcium 8.4 I & O for Last 24 hours: Intake & Output 02/06/21 02/07/21 02/08/21 02/09/21 11:59 11:59 11:59 11:59 Intake Total 490 / 490 Output Total 350 / 350 Balance 140 / 140 Weight 145 lb 130 lb - Constitutional no acute distress - *Routine HEENT Exam Head: Present: normocephalic Eye: Present: EOMI, PERRL ENT: Present: mucous membranes moist - *Routine Neck Exam Present: supple. Absent: lymphadenopathy - *Routine Respiratory Exam Present: CTA bilaterally - *Routine Cardiovascular Exam Present: RRR - *Routine Abdominal Exam Present: soft, normoactive bowel sounds. Absent: tenderness - *Routine Extremities Exam Absent: cyanosis, clubbing, edema - *Routine Skin Exam Present: warm. Absent: rash - *Routine Neurological Exam Present: alert, oriented X3 Assessment and Plan (1) GI bleed Status: Acute Category: Medical Code(s): K92.2 - Gastrointestinal hemorrhage, unspecified (2) Hypertensive urgency Status: Acute Category: Medical Code(s): I16.0 - Hypertensive urgency (3) KAVIN (acute kidney injury) Status: Acute Category: Medical Code(s): N17.9 - Acute kidney failure, unspecified - Assessment and plan all Dx Assessment and Plan for all problems:: Several issues with patient today: 1. GI bleeding. Doing well and stable status post transfusion. Surgery plans EGD today. Appreciate input and plan of procedure. 2. Given his significant hypertension with difficult to control levels at home including 3 antihypertensives and a diuretic we will ask cardiology to evaluate him for possible renal artery stenosis. Also because of his unusual CT scan appearance and splenic flexure inflammation concerned about watershed infarct issues and perhaps mesenteric ischemia.
--- NOTE | 2021-02-09 09:34 | HMH.CNCARD ---
History of Present Illness Consult date: 02/09/21 Requesting physician: Emiliano Rosario Chief complaint: PAD evaluation, GI bleed Additional Medical History:: 1. Coronary calcifications seen on CT of the chest 12/2020 2. Cardiomyopathy with global hypokinesis by echocardiogram 12/2020 with EF of 40% 3. Hypertension on multiple medications 4. Aortic valve disease with mild stenosis and insufficiency, echocardiogram, 12/2020 5. Family history of coronary artery disease with older brother having bypass in his mid 70s 6. Tobacco use, 1 pack/day, 30+ years 7. Chronic left bundle branch block 8. GI bleed, 02/2021 A. Remote history of similar episode in the mid which was treated at [facility]. He remembers having an endoscopy but no details. History of present illness: Mr. Fraser is a pleasant 75-year-old male with minimal contact with the medical community until 2 months ago when he was admitted for pneumonia. At that time found to have significant elevation in blood pressure necessitating initiation of multiple medications. This morning states he had an episode of feeling the urge to go to the bathroom. When he had a bowel movement it was frankly bloody at home. Denies any nausea, abdominal pain, fever, chest pain. No previous episodes of similar melena or hematochezia. Work-up in the ER consisted of scans of his abdomen, head, chest. Noted to have inflammation of splenic flexure of colon. No maria fernanda source on imaging for bleeding. Initial hemoglobin normal at 13 however repeat labs have shown a drop to a level of 10. Multiple other small bloody bowel movements since being in the ER and admitted. Admitted to medicine for further management. On assessment after arriving to the floor, patient has had an additional large bloody bowel movement. Appears in no acute distress however. at bedside. Blood pressures have continued to be elevated through the day. Given a dose of lisinopril this afternoon, will monitor closely for improvement in his blood pressure The above per Dr. Rosario Cardiology consulted for evaluation of the patient's renal arteries in the setting of persistent hypertension on multiple medications. 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 In review of the patient's chart, echocardiogram from 2 months ago shows an EF of 40% with global hypokinesis. Patient has coronary artery calcifications noted on CTA of the chest from 2 months ago along with mildly elevated troponins this admission and a chronic left bundle branch block on EKG. He denies any prior cardiac history but does relate that his brother had bypass in his mid 70s. Patient does continue to smoke but denies history of diabetes. [facility] History Medical History: Reports:: Heart Murmur, Hypertension Denies:: Atrial Fibrillation, Congestive Heart Failure, Chronic Obstructive Pulmonary Disease (COPD), Coronary Artery Disease, Diabetes Mellitus Type 1, Diabetes Mellitus Type 2, Gastroesophageal Reflux Disease(GERD) *Have you ever received a pneumonia vaccine?: No *Have you received a flu vaccine this season?: No - *Social History Last grade of school completed: High school graduate Smoking Status: Current every day smoker Tobacco Type: cigarettes # Packs/Day (cigarettes): 1 Alcohol Intake: never *Occupational Status:: retired Housing: house Household Members: spouse *Travel in the last 8 weeks: None Family Hx:: No significant family history Meds Home Medications Medication Instructions Recorded Confirmed Type Amlodipine Besylate [Norvasc 5mg 5 mg PO DAILY 02/08/21 02/08/21 History tablet] Metoprolol Succinate [Metoprolol 50 mg PO DAILY 02/08/21 02/08/21 History Succinate 50mg Tablet*] buPROPion HCL [Bupropion Xl] 150 mg PO DAILY 02/08/21 02/08/21 History hydroCHLOROthiazide [HCTZ 25mg 25 mg PO DAILY 1
--- NOTE | 2021-02-09 10:23 | P.PN_ITS ---
[facility] Anesthesia Checklist - Patient Identification Patient Identification: Arm Band - Structural Data Admitted From: Inpatient Planned Operative Procedure/s: egd Consent for Planned Operative Procedure(s) Verified: Yes Verified Documents: Surgical Consent, History and Physical - NPO Status Verified Time NPO: 00:00 - Additional verifications Anesthesia Reactions: No - Airway Assessment C-Spine Mobility Assessed: Yes (mp2) TMJ Mobility Assessed: Yes Dentition: Edentulous - Neurological Assessment Level of Consciousness: Awake, Alert - Anesthesia Plan Anesthesia Risk discussed: Yes Anesthesia Plan: Verified ASA Class: III Anesthesia Type: [facility] History I have reviewed the patient's past medical history: Yes Medical History: Reports:: Heart Murmur, Hypertension Denies:: Atrial Fibrillation, Congestive Heart Failure, Chronic Obstructive Pulmonary Disease (COPD), Coronary Artery Disease, Diabetes Mellitus Type 1, Diabetes Mellitus Type 2, Gastroesophageal Reflux Disease(GERD) *Have you ever received a pneumonia vaccine?: No *Have you received a flu vaccine this season?: No Anesthesia experience/problems:: nac Other Surgeries: Yes: EGD - *Social History Last grade of school completed: High school graduate Smoking Status: Current every day smoker Tobacco Type: cigarettes # Packs/Day (cigarettes): 1 Alcohol Intake: never Substance Use Type: denies use *Occupational Status:: retired Housing: house Household Members: spouse *Travel in the last 8 weeks: None Family Hx:: No significant family history
--- NOTE | 2021-02-09 10:29 | HMH.SCOPE ---
- Procedure: Date: 02/09/21 Patient Date of :: 1945 Procedure Performed:: Esophagogastroduodenoscopy with biopsies Indications:: Patient is a 75-year-old male with a history of left bundle branch block, hypertension, aortic valve disease. He states that approximately midnight he had developed several episodes of symptoms consistent with hematochezia with bright red blood per rectum. Reportedly he experienced a syncopal episode. Patient reports similar episode in the mid at which time he was evaluated at [facility]. He possibly underwent endoscopy. The exact details are unknown. He has had no subsequent problems. He has not had a colonoscopy subsequently. Denies any history of ulcer disease. He does state that he has had some constipation recently. Upon presentation his hemoglobin was 13.5. The following afternoon it had decreased to 10.4. He received 2 units with appropriate response with posttransfusion hemoglobin of 12.4. It has remained stable overnight. He has not had any additional bleeding symptomatology. Performing Provider:: Nikos Roman MD Referring Provider:: ALEX Mendez MD Sedation:: MAC sedation Procedure:: Patient was taken to endoscopy procedure room. He was positioned in lateral decubitus position. Adequate intravenous sedation was achieved with anesthesia titration of propofol. Olympus endoscope was inserted via the oropharynx. Esophagus was cannulated. Esophagus appeared overall grossly normal. Gastroesophageal junction was encountered at approximately 42 cm from the incisors. Stomach was cannulated and insufflated. Retroflexion revealed a very tiny sliding hiatal hernia. There was some diffuse mild nonerosive gastritis. Pylorus was traversed. Within the duodenal bulb there was moderate nonerosive duodenitis. Distal duodenum appeared unremarkable. Biopsy was obtained of the duodenal bulb. Prepyloric gastric biopsy was obtained. Stomach was desufflated and the endoscope was withdrawn. Findings:: Mild nonerosive gastritis Moderate nonerosive duodenitis within the bulb Very small sliding hiatal hernia Recommendations:: No obvious source of GI blood loss on upper endoscopy. This could be colonic source such as diverticular or colitis bleeding. If he continues to remain stable with no clinical bleeding and laboratory studies remained stable may be able to undergo early outpatient colonoscopy. However if he develops recurrent bleeding and needed colonoscopy for therapeutic purposes may need during hospitalization. Complications:: None immediately apparent Estimated blood obtained (mL): 1
--- NOTE | 2021-02-09 19:41 | PC.NURSE ---
PT IS RESTING IN BED. NO COMPLAINTS OF DISCOMFORT. PT IS TOLERATING CLEAR LIQUID DIET. LUNG SOUNDS CLEAR. ABDOMEN SOFT/NON TENDER WITH ACTIVE BOWEL SOUNDS. SKIN C/D/I. VSS. WILL CONTINUE TO MONITOR.
[2021-02-10] VITALS (20 sets, daily range): BP systolic 98–199; BP diastolic 45–85; PULSE 50–83; RESP 12–20; TEMP 36.7–37.1; O2SAT 95–99; BMI 20.4
--- NOTE | 2021-02-10 | IR_ITS ---
APPROVED REPORT Patient Location: Inpatient PROCEDURES Left heart catheterization Left ventriculogram Selective coronary angiogram Drug-eluting stent deployment to the large posterior descending artery Drug-eluting stent deployment to the proximal and mid dominant right coronary Selective engagement and angiogram of the celiac artery Bare-metal stent deployment to the ostial proximal celiac artery Selective engagement of the superior mesenteric artery Bare-metal stent deployment to the ostial proximal superior mesenteric artery Right renal artery selective angiogram Drug-eluting stent deployment to the ostial proximal right renal artery Selective engagement of the superior branch of the left renal artery with selective angiography Nonselective angiography of the inferior branch of the left renal artery Drug-eluting stent deployment to the superior branch of left renal artery INDICATION Acute non-ST elevation myocardial infarction, Coronary artery disease, Mesenteric ischemia, Celiac artery stenosis, Superior mesenteric artery stenosis, GI bleed believed to be secondary to mesenteric ischemia, Renovascular hypertension, Renal artery stenosis Informed consent was obtained prior to the procedure. COMPLICATIONS none Estimated Blood Loss: less than 10 ml TECHNIQUE 1% lidocaine used anesthetize the right anterior aspect of the right wrist. The right radial artery was accessed via the Salinger technique and a 6 Egyptian hydrophilic sheath was placed in the right radial artery. An arterial cocktail using verapamil nitroglycerin heparin and lidocaine were administered. Following this a Poppa catheter was used to perform left heart catheterization left ventriculogram and selective coronary angiogram. The catheter was then pulled back and used to perform nonselective angiography of the celiac artery. A severe stenosis was identified therefore the table wire was placed back into the descending aorta and the short sheath was exchanged for a 119 cm 6 Egyptian [employer] hydrophilic sheath. A Choice PT extra-support wire was used to cannulate the celiac artery and a PV multi curve catheter was used to selectively intubate the celiac artery and perform selective angiography. Following this the wire was placed back into the vessel and an 8 mm x 17 mm bare-metal stent was deployed at 12 amanda reducing the severe stenosis to 0%. After achieving excellent angiographic results this process was repeated in the superior mesenteric artery where a 7 mm x 17 mm bare-metal stent was placed proximally and deployed at 12 amanda. There was a stenosis ostially in the vessel required better post dilatation therefore a 7 mm x 27 mm bare-metal stent was placed proximal to the first stent through the entire stent and then residing distally to the first stent and deployed at 20 amanda reducing the severe stenosis to 0%. Excellent angiographic results were obtained. This process was then repeated at the right renal artery. A 5 mm x 22 mm resolute Gove stent was deployed at 20 amanda in the right renal artery reducing the severe eccentric stenosis to 0%. This process was then repeated in the superior branch of the left renal artery where a 3 mm x 22 mm resolute Gove stent was placed in the mid superior branch reducing the severe stenosis to 0%. Nonselective angiography was performed of the inferior branch of the left renal artery. Due to the abrupt angulation I was unable to cannulate this via the radial approach therefore it was decided to perform this at another time from the groin access. At this point the long sheath was exchanged for a 6 Egyptian hydrophilic sheath and the Poppa catheter was placed back in the right coronary artery and a Choice PT wire was placed in the
[2021-02-10 06:43] LABS: Basophils # 0.1 K/mm3 (0-0.2); Basophils % 0.9 % (0.1-2.0); Eosinophils # 1.1 K/mm3 (0.0-0.4); Eosinophils % 15.5 % (0.1-12.0); Hematocrit 36.6 % (42.0-52.0); Hemoglobin 12.3 g/dL (14.1-18.0); Lymphocytes # 1.4 K/mm3 (0.7-4.5); Lymphocytes % 19.1 % (10-50); Mean Corpuscular HGB Conc 33.5 g/dL (31.8-35.4); Mean Corpuscular Hemoglobin 31.5 pg (27.0-31.2); Mean Corpuscular Volume 93.9 fl (80-94); Mean Platelet Volume 8.4 fl (7.4-10.4); Monocytes # 0.4 K/mm3 (0.1-1.0); Monocytes % 5.8 % (1.7-9.3); Neutrophils # 4.3 K/mm3 (1.8-7.8); Neutrophils % 58.8 % (37.0-80.0); Platelet Count 268 K/mm3 (142-424); Red Cell Distribution Width 14.5 % (11.5-17.5); White Blood Count 7.3 K/mm3 (4.8-10.8)
--- NOTE | 2021-02-10 06:43 | PC.NURSE ---
Pt rested well t/o the night. No complaints of pain or N/V/D this shift. Has been NPO since midnight. Abdomen soft/non tender. VSS call khan within reach will continue to monitor.
[2021-02-10 06:56] LABS: Chloride 107 mmol/L (98-107); Sodium 136 mmol/L (136-145)
[2021-02-10 06:59] LABS: Alanine Aminotransferase 9 U/L (12-78); Albumin Level 3.2 g/dl (3.5-5.0); Albumin/Globulin Ratio 1.2 (1.1-1.8); Alkaline Phosphatase 83 U/L (38-126); Aspartate Amino Transferase 26 U/L (17-59); Bilirubin,Total 0.6 mg/dl (0.2-1.3); Blood Urea Nitrogen 16 mg/dl (9-20); Calcium 8.5 mg/dl (8.4-10.2); Carbon Dioxide 24 mmol/L (22.0-30.0); Creatinine Clearance Estimated 48 mL/min (50-200); Estimated Glomerular Filt Rate 65 ml/min (>60); GFR (African American) 79 ML/MIN (>60); Globulin 2.6 g/dL (1.3-3.2); Glucose 92 mg/dl (74-100); Total Protein,Serum 5.8 g/dl (6.3-8.2)
--- NOTE | 2021-02-10 08:26 | HMH.ACPN2 ---
Internal Medicine - PN: Subj *Date: 02/10/21 *Time: 08:26 Interval history: EGD was tolerated well yesterday, no sites of active bleeding. Patient has had no further evidence of GI bleeding. His blood count remained stable. Patient inadvertently received 2 units of packed cells very early yesterday morning as apparently nursing misunderstood the order to transfuse 2 units if hemoglobin is less than 8, his hemoglobin was 10.4 and he received 2 packed cells that were on hold and his hemoglobin bumped up to 12.4. Is been stable since that time. He feels better, his blood pressure remains slightly high. Exam Vital signs and Labs for Last 24 Hours: Temp Pulse Resp BP Pulse Ox 98.4 F 64 16 166/78 H 96 02/10/21 08:00 02/10/21 08:00 02/10/21 08:00 02/10/21 08:00 02/10/21 08:00 Laboratory Results - last 24 hr 02/10/21 06:17: WBC 7.3, RBC 3.90 L, Hgb 12.3 L, Hct 36.6 L, MCV 93.9, MCH 31.5 H, MCHC 33.5, RDW 14.5, Plt Count 268, MPV 8.4, Neut % (Auto) 58.8, Lymph % (Auto) 19.1, [place] % (Auto) 5.8, Eos % (Auto) 15.5 H, Baso % (Auto) 0.9, Neut # (Auto) 4.3, Lymph # (Auto) 1.4, [place] # (Auto) 0.4, Eos # (Auto) 1.1 H, Baso # (Auto) 0.1 02/10/21 06:17: Sodium 136, Potassium 4.0, Chloride 107, Carbon Dioxide 24, Anion Gap 9.0, BUN 16, Creatinine 1.10, Estimated Creat Clear 48, Estimated GFR 65, Est GFR ( Amer) 79, Glucose 92, Calcium 8.5, Total Bilirubin 0.6, AST 26, ALT 9 L D, Alkaline Phosphatase 83, Total Protein 5.8 L, Albumin 3.2 L, Globulin 2.6, Albumin/Globulin Ratio 1.2 I & O for Last 24 hours: Intake & Output 02/07/21 02/08/21 02/09/21 02/10/21 11:59 11:59 11:59 11:59 Intake Total 1459 / 1459 740 / 740 Output Total 350 / 350 2170 / 2170 Balance 1109 / 1109 -1430 / -1430 Weight 145 lb 130 lb 130 lb - Constitutional no acute distress - *Routine HEENT Exam Head: Present: normocephalic Eye: Present: EOMI, PERRL ENT: Present: mucous membranes moist - *Routine Neck Exam Present: supple. Absent: lymphadenopathy - *Routine Respiratory Exam Present: CTA bilaterally - *Routine Cardiovascular Exam Present: RRR - *Routine Abdominal Exam Present: soft, normoactive bowel sounds. Absent: tenderness - *Routine Extremities Exam Absent: cyanosis, clubbing, edema - *Routine Skin Exam Present: warm. Absent: rash - *Routine Neurological Exam Present: alert, oriented X3 Assessment and Plan (1) GI bleed Status: Acute Category: Medical Code(s): K92.2 - Gastrointestinal hemorrhage, unspecified (2) Hypertensive urgency Status: Acute Category: Medical Code(s): I16.0 - Hypertensive urgency (3) KAVIN (acute kidney injury) Status: Acute Category: Medical Code(s): N17.9 - Acute kidney failure, unspecified (4) Cardiomyopathy Status: Acute Category: Medical Code(s): I42.9 - Cardiomyopathy, unspecified (5) Aortic insufficiency Status: Acute Category: Medical Code(s): I35.1 - Nonrheumatic aortic (valve) insufficiency (6) Tobacco use Status: Acute Category: Social Hx Code(s): Z72.0 - Tobacco use (7) Elevated troponin Status: Acute Category: Medical Code(s): R77.8 - Other specified abnormalities of plasma proteins (8) Left bundle branch block (LBBB) Status: Acute Category: Medical Code(s): I44.7 - Left bundle-branch block, unspecified (9) Vasovagal episode Status: Acute Category: Medical Code(s): R55 - Syncope and collapse - Assessment and plan all Dx Assessment and Plan for all problems:: Appreciate surgery input. Cardiology will evaluate patient today with invasive angiogram for renal artery stenosis and possible mesenteric ischemia given appearance of bowels. If this looks good and patient CBC at 2:00 is stable will consider discharge home. Will need outpatient colonoscopy.
--- NOTE | 2021-02-10 11:48 | P.PN_ITS ---
Subjective Narrative: Currently in the cardiology suite undergoing catheterization. Progress Note: A&P (1) GI bleed Status: Acute Assessment and plan: No sign of ongoing hemorrhage. Further evaluation and management pending results of cardiology evaluation/cat heterization. Outpatient colonoscopy in near future. (2) Hypertensive urgency Status: Acute (3) KAVIN (acute kidney injury) Status: Acute (4) Cardiomyopathy Status: Acute (5) Aortic insufficiency Status: Acute (6) Tobacco use Status: Acute (7) Elevated troponin Status: Acute (8) Left bundle branch block (LBBB) Status: Acute (9) Vasovagal episode Status: Acute Exam Vital signs and Labs for Last 24 Hours: Temp Pulse Resp BP Pulse Ox 98.4 F 64 16 166/78 H 96 02/10/21 08:00 02/10/21 08:00 02/10/21 08:00 02/10/21 08:00 02/10/21 08:00 Laboratory Results - last 24 hr 02/10/21 06:17: WBC 7.3, RBC 3.90 L, Hgb 12.3 L, Hct 36.6 L, MCV 93.9, MCH 31.5 H, MCHC 33.5, RDW 14.5, Plt Count 268, MPV 8.4, Neut % (Auto) 58.8, Lymph % (Auto) 19.1, [place] % (Auto) 5.8, Eos % (Auto) 15.5 H, Baso % (Auto) 0.9, Neut # (Auto) 4.3, Lymph # (Auto) 1.4, [place] # (Auto) 0.4, Eos # (Auto) 1.1 H, Baso # (Auto) 0.1 02/10/21 06:17: Sodium 136, Potassium 4.0, Chloride 107, Carbon Dioxide 24, Anion Gap 9.0, BUN 16, Creatinine 1.10, Estimated Creat Clear 48, Estimated GFR 65, Est GFR ( Amer) 79, Glucose 92, Calcium 8.5, Total Bilirubin 0.6, AST 26, ALT 9 L D, Alkaline Phosphatase 83, Total Protein 5.8 L, Albumin 3.2 L, Globulin 2.6, Albumin/Globulin Ratio 1.2 I & O for Last 24 hours: Intake & Output 02/07/21 02/08/21 02/09/21 02/10/21 11:59 11:59 11:59 11:59 Intake Total 1459 / 1459 740 / 740 Output Total 350 / 350 2170 / 2170 Balance 1109 / 1109 -1430 / -1430 Weight 145 lb 130 lb 130 lb - Constitutional Comments: Evaluation deferred (patient in cardiology suite undergoing catheterization)
--- NOTE | 2021-02-10 13:59 | HMH.PNCARD ---
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 No complaints. Exam Vital signs and Labs for Last 24 Hours: Temp Pulse Resp BP Pulse Ox 98.4 F 65 16 158/57 H 98 02/10/21 08:00 02/10/21 13:50 02/10/21 13:50 02/10/21 13:50 02/10/21 13:50 Laboratory Results - last 24 hr 02/10/21 06:17: WBC 7.3, RBC 3.90 L, Hgb 12.3 L, Hct 36.6 L, MCV 93.9, MCH 31.5 H, MCHC 33.5, RDW 14.5, Plt Count 268, MPV 8.4, Neut % (Auto) 58.8, Lymph % (Auto) 19.1, [place] % (Auto) 5.8, Eos % (Auto) 15.5 H, Baso % (Auto) 0.9, Neut # (Auto) 4.3, Lymph # (Auto) 1.4, [place] # (Auto) 0.4, Eos # (Auto) 1.1 H, Baso # (Auto) 0.1 02/10/21 06:17: Sodium 136, Potassium 4.0, Chloride 107, Carbon Dioxide 24, Anion Gap 9.0, BUN 16, Creatinine 1.10, Estimated Creat Clear 48, Estimated GFR 65, Est GFR ( Amer) 79, Glucose 92, Calcium 8.5, Total Bilirubin 0.6, AST 26, ALT 9 L D, Alkaline Phosphatase 83, Total Protein 5.8 L, Albumin 3.2 L, Globulin 2.6, Albumin/Globulin Ratio 1.2 I & O for Last 24 hours: Intake & Output 02/08/21 02/09/21 02/10/21 02/11/21 11:59 11:59 11:59 11:59 Intake Total 1459 / 1459 740 / 740 Output Total 350 / 350 2170 / 2170 Balance 1109 / 1109 -1430 / -1430 Weight 145 lb 130 lb 130 lb - *Routine Respiratory Exam Present: CTA bilaterally - *Routine Cardiovascular Exam Present: RRR Progress Note: A&P (1) GI bleed Status: Acute Assessment and plan: Stable with no recurrent bleeding. No identifiable source on EGD. S/p 2 units of blood transfused. (2) Hypertensive urgency Status: Acute Assessment and plan: Controlled but not to goal. Will stop norvasc and plan to increase lisinopril and metoprolol as tolerated due to cardiomyopathy. (3) KAVIN (acute kidney injury) Status: Acute Assessment and plan: Improved. (4) Cardiomyopathy Status: Acute Assessment and plan: COntinue beta demarcus and MARIELLE. Consider stopping CCB after cath and increasing above meds. (5) Aortic insufficiency Status: Acute (6) Tobacco use Status: Acute (7) Left bundle branch block (LBBB) Status: Acute Assessment and plan: No episodes of high grade arrhythmias noted thus far. (8) Vasovagal episode Status: Acute (9) NSTEMI (non-ST elevated myocardial infarction) Status: Acute Assessment and plan: Started on ASA and plavix after NISHA to RCA and PDA. (10) KAITLIN (renal artery stenosis) Status: Acute Assessment and plan: NISHA to right renal artery with plans to have pt come back for Left renal artery stenting in 2-3 wks. (11) Celiac artery stenosis Status: Acute Assessment and plan: S/p stenting. On DAPT. Assessment and Plan for All Diagnoses:: ANGIOGRAPHIC RESULTS The left main artery Is short and normal The left anterior descending artery Has proximal calcified 30% stenosis with a mid vessel calcified eccentric 30% stenosis followed by additional mid vessel 30% calcified stenosis The circumflex artery Is a nondominant vessel with proximal 30% and a mid vessel eccentric 30 to 40% stenosis The right coronary artery Is a large dominant vessel and has long proximal to mid vessel 50% stenoses with an eccentric 90% stenosis in a large posterior descending artery The VARGAS ventriculogram reveals Dilated with ejection fraction 40% The left ventricular end-diastolic pressure 10 mmHg The celiac artery has an ostial 80 to 90% stenosis The superior mesenteric artery has an ostial 70 to 80% stenosis The right renal artery is singular and has proximal to mid vessel eccentric 70% stenoses The left kidney has a dual arterial supply with the smaller superior branch has diffuse 70% stenoses while the larger inferior branch has an ostial proximal 70% stenosis IMPRESSION Acute non-ST elevation myocardial infarction as described above Successful stenting of the proximal dominant right c
--- NOTE | 2021-02-10 14:39 | CT_ITS ---
PROCEDURE INFORMATION: Exam: CT Abdomen And Pelvis Without Contrast Exam date and time: 02/10/2021 2:39 PM Age: 75 years old Clinical indication: Abdominal pain; Prior surgery; Surgery date: Post-operative (0-2 days); Surgery type: Patient had sma and celiac stents and renal stents today in cathlab. Patient is now C/O left abd pain and vomiting; Additional info: Bleeding post stent TECHNIQUE: Imaging protocol: Computed tomography of the abdomen and pelvis without contrast. Radiation optimization: All CT scans at this facility use at least one of these dose optimization techniques: automated exposure control; mA and/or kV adjustment per patient size (includes targeted exams where dose is matched to clinical indication); or iterative reconstruction. COMPARISON: CT ABDOMEN PELVIS W CON 02/08/2021 4:50 AM FINDINGS: Liver: No mass. Gallbladder and bile ducts: Unremarkable. No ductal dilation. Pancreas: Normal. No ductal dilation. Spleen: Normal. No splenomegaly. Adrenal glands: Normal. No mass. Kidneys and ureters: Left perinephric hematoma maximum diameter approximately 5 cm. Distortion of the left renal parenchyma secondary to the hematoma and persistent left nephrogram. Stomach and bowel: No acute findings. No obstruction. Colonic diverticulosis without acute diverticulitis. Appendix: No evidence of appendicitis. Intraperitoneal space: Unremarkable. No free air. No significant fluid collection. Vasculature: Celiac, SMA, and bilateral renal artery stents. No abdominal aortic aneurysm. Lymph nodes: No significant adenopathy. Urinary bladder: Unremarkable, contrast opacified. Reproductive: Unremarkable as visualized. Bones/joints: No acute findings. Soft tissues: Unremarkable. IMPRESSION: Left perinephric hematoma.
--- NOTE | 2021-02-10 15:50 | SUR.PHASEII ---
upon taking the patient to 2nd floor, he started to have 6/10 left side flank/abdominal pain, N/V. zofran given. Dr. patel notified. New orders stat CT without contrast. 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 See report. [id number] patient taken back to floor.
[2021-02-10 16:14] LABS: Basophils # 0.1 K/mm3 (0-0.2); Basophils % 0.4 % (0.1-2.0); Eosinophils # 0.3 K/mm3 (0.0-0.4); Eosinophils % 2.8 % (0.1-12.0); Hematocrit 36.1 % (42.0-52.0); Hemoglobin 11.9 g/dL (14.1-18.0); Lymphocytes # 0.8 K/mm3 (0.7-4.5); Lymphocytes % 6.7 % (10-50); Mean Corpuscular HGB Conc 32.8 g/dL (31.8-35.4); Mean Corpuscular Hemoglobin 31.3 pg (27.0-31.2); Mean Corpuscular Volume 95.3 fl (80-94); Monocytes # 0.5 K/mm3 (0.1-1.0); Monocytes % 4.1 % (1.7-9.3); Neutrophils # 9.9 K/mm3 (1.8-7.8); Platelet Count 190 K/mm3 (142-424); Red Blood Count 3.79 M/mm3 (4.60-6.20); Red Cell Distribution Width 14.7 % (11.5-17.5); White Blood Count 11.5 K/mm3 (4.8-10.8)
[2021-02-10 16:30] LABS: MANUAL DIFFERENTIAL MANUAL DIFFERENTIAL (MANUAL DIFF)
--- NOTE | 2021-02-10 17:00 | CT_ITS ---
PROCEDURE INFORMATION: Exam: CT Abdomen And Pelvis Without Contrast Exam date and time: 02/10/2021 5:00 PM Age: 75 years old Clinical indication: Abdominal pain; Flank; Left; Prior surgery; Surgery date: Post-operative (0-2 days); Additional info: Hematoma TECHNIQUE: Imaging protocol: Computed tomography of the abdomen and pelvis without contrast. Radiation optimization: All CT scans at this facility use at least one of these dose optimization techniques: automated exposure control; mA and/or kV adjustment per patient size (includes targeted exams where dose is matched to clinical indication); or iterative reconstruction. COMPARISON: CT ABDOMEN PELVIS WO CON 02/10/2021 2:43 PM FINDINGS: Lungs: Mild bilateral dependent atelectasis. Heart: Heart remains mildly enlarged. Liver: Normal. Unchanged hypodensity in the left hepatic lobe. Gallbladder and bile ducts: Normal. No calcified stones. No ductal dilation. Pancreas: Pancreatic duct is dilated up to 8 mm. This is increased from recent study. Cause not identified, but there is some soft tissue seen at the ampullary. Clinical correlation recommended for possible mass. Spleen: Normal. No splenomegaly. Adrenal glands: Normal. No mass. Kidneys and ureters: A perinephric hematoma is again seen on the left. No significant change in size again measuring up to 5 cm in transaxial dimension. It again causes distortion of left renal parenchyma. Delayed bilateral nephrograms again noted. Nonobstructing stones seen on the left. Stomach and bowel: Unremarkable. No obstruction. No mucosal thickening. Appendix: No evidence of appendicitis. Intraperitoneal space: Unremarkable. No free air. Retroperitoneal space: Extensive stranding in the left retroperitoneum again seen compatible with hematoma. This is increased from recent prior. Vasculature: Bilateral renal stents, SMA stent, and celiac stent are again noted. The left renal stent does not terminate in the aorta, but rather about 4 mm distal. This finding is unchanged. Lymph nodes: Unremarkable. No enlarged lymph nodes. Urinary bladder: Contrast in the urinary bladder noted. Reproductive: Unremarkable as visualized. Bones/joints: Unremarkable. No acute fracture. IMPRESSION: 1. The left perinephric hematoma is similar in size to recent comparison, but there has been increased stranding/hemorrhage in the left retroperitoneum. Recommend correlation with serial hematocrit and follow-up CT for change. 2. The pancreatic duct measures up to 8 mm. This is increased from recent comparison. Questionable ampullary mass. Clinical correlation recommended.
[2021-02-10 17:20] LABS: Anisocytosis 1+; Hypochromasia 1+; Lymphocytes % 12 % (10-50); Monocytes % 8 % (2-9); Neutrophils % 80 % (42-76); Platelet Estimate Normal; Total Cells Counted 100
[2021-02-10 18:14] LABS: CATHL Activated Clotting Time 225 SEC (74-125)
[2021-02-10 18:15] LABS: CATHL Activated Clotting Time > 400 SEC (74-125)
--- NOTE | 2021-02-10 20:03 | PC.NURSE ---
PT IS RESTING IN BED. AFTER PT RETURNED TO THE FLOOR FROM [facility] HE BECAME FOR NAUSEATED AND WAS HAVING SEVERE PAIN IN HIS LEFT SIDE. STAT CT OF THE ABDOMEN WAS ORDERED. NOTIFIED OF RESULTS. PAIN WAS CONTROLLED WITH ONE DOSE OF MORPHINE AND ONE DOSE OF PO PAIN MEDICATION. ORDERED FOR PT TO BE TYPE AND SCREENED( 4 UNITS PRBC'S ) AND TO HAVE A REPEAT CT OF THE ABDOMEN AT 1700. ALL CATH VSS. AFTER 1700 CT PT WAS ABLE TO EAT A SOFT DIET AND TOLERATED WELL. DRESSING TO CATH SITE C/D/I. LUNG SOUNDS CLEAR. NO EDEMA NOTED TO BLE. WILL CONTINUE TO MONITOR.
[2021-02-11] VITALS (9 sets, daily range): BP systolic 125–178; BP diastolic 53–84; PULSE 56–78; RESP 12–20; TEMP 36.7–37; O2SAT 95–98
[2021-02-11 06:54] LABS: Basophils % 0.5 % (0.1-2.0); Eosinophils # 0.2 K/mm3 (0.0-0.4); Eosinophils % 2.4 % (0.1-12.0); Hematocrit 30.7 % (42.0-52.0); Lymphocytes % 10.4 % (10-50); Mean Corpuscular Hemoglobin 31.6 pg (27.0-31.2); Mean Corpuscular Volume 95.7 fl (80-94); Mean Platelet Volume 8.9 fl (7.4-10.4); Monocytes # 0.6 K/mm3 (0.1-1.0); Monocytes % 6.4 % (1.7-9.3); Neutrophils # 7.3 K/mm3 (1.8-7.8); Neutrophils % 80.3 % (37.0-80.0); Platelet Count 195 K/mm3 (142-424); Red Blood Count 3.21 M/mm3 (4.60-6.20); Red Cell Distribution Width 14.8 % (11.5-17.5); White Blood Count 9.1 K/mm3 (4.8-10.8)
[2021-02-11 07:00] LABS: Chloride 106 mmol/L (98-107); Potassium 4.6 mmoL/L (3.5-5.1); Sodium 136 mmol/L (136-145)
[2021-02-11 07:03] LABS: Anion Gap 13.6 mEq/L (5-15); Blood Urea Nitrogen 24 mg/dl (9-20); Carbon Dioxide 21 mmol/L (22.0-30.0); Creatinine Clearance Estimated 27 mL/min (50-200); Estimated Glomerular Filt Rate 33 ml/min (>60); GFR (African American) 40 ML/MIN (>60)
[2021-02-11 07:04] LABS: Calcium 8.6 mg/dl (8.4-10.2); Glucose 112 mg/dl (74-100)
[2021-02-11 07:14] LABS: Hemoglobin 10.1 g/dL (14.1-18.0)
--- NOTE | 2021-02-11 07:47 | HMH.PNCARD ---
Subjective Date: 02/11/21 Time: 07:47 Principal diagnosis: PAD, CAD, CM, LBBB Interval history: 75-year-old white male in bed in no acute distress. Denies any chest pain, pressure or tightness overnight. Abdominal discomfort has resolved. Patient was able to tolerate liquid diet last evening without difficulties. Exam Vital signs and Labs for Last 24 Hours: Temp Pulse Resp BP Pulse Ox 98.4 F 56 L 12 141/69 H 96 02/11/21 04:00 02/11/21 04:00 02/11/21 04:00 02/11/21 04:00 02/11/21 04:00 Laboratory Results - last 24 hr 02/10/21 09:54: Activated Clotting Time > 400 H* 02/10/21 10:58: Activated Clotting Time 225 H* D 02/10/21 15:50: WBC 11.5 H D, RBC 3.79 L, Hgb 11.9 L, Hct 36.1 L, MCV 95.3 H, MCH 31.3 H, MCHC 32.8, RDW 14.7, Plt Count 190 D, MPV 9.0, Neut % (Auto) 86.0 H, Lymph % (Auto) 6.7 L, [place] % (Auto) 4.1, Eos % (Auto) 2.8, Baso % (Auto) 0.4, Neut # (Auto) 9.9 H, Lymph # (Auto) 0.8, [place] # (Auto) 0.5, Eos # (Auto) 0.3, Baso # (Auto) 0.1, Total Counted 100, Neutrophils % (Manual) 80 H, Lymphocytes % (Manual) 12, Monocytes % (Manual) 8, Platelet Estimate Normal, Hypochromasia 1+, Anisocytosis 1+ 02/10/21 18:16: Blood Type A Positive, Antibody Screen Negative 02/11/21 06:17: WBC 9.1, RBC 3.21 L, Hgb 10.1 L D, Hct 30.7 L, MCV 95.7 H, MCH 31.6 H, MCHC 33.0, RDW 14.8, Plt Count 195, MPV 8.9, Neut % (Auto) 80.3 H, Lymph % (Auto) 10.4, [place] % (Auto) 6.4, Eos % (Auto) 2.4, Baso % (Auto) 0.5, Neut # (Auto) 7.3, Lymph # (Auto) 1.0, [place] # (Auto) 0.6, Eos # (Auto) 0.2, Baso # (Auto) 0.0 02/11/21 06:17: Sodium 136, Potassium 4.6, Chloride 106, Carbon Dioxide 21 L, Anion Gap 13.6, BUN 24 H D, Creatinine 2.00 H D, Estimated Creat Clear 27, Estimated GFR 33 L, Est GFR ( Amer) 40 L D, Glucose 112 H D, Calcium 8.6 I & O for Last 24 hours: Intake & Output 02/08/21 02/09/21 02/10/21 02/11/21 11:59 11:59 11:59 11:59 Intake Total 1459 / 1459 740 / 740 318 / 318 Output Total 350 / 350 2170 / 2170 850 / 850 Balance 1109 / 1109 -1430 / -1430 -532 / -532 Weight 145 lb 130 lb 130 lb - *Routine Respiratory Exam Present: CTA bilaterally - *Routine Cardiovascular Exam Present: RRR, murmur - *Routine Abdominal Exam Present: soft, normoactive bowel sounds. Absent: tenderness - *Routine Neurological Exam Present: alert, oriented X3 Progress Note: A&P (1) GI bleed Status: Acute Assessment and plan: s/p transfused to hgb of 12 with drop to 10 after multivessel stenting with left perinephric hematoma. STable by [address] scans. (2) Hypertensive urgency Status: Acute (3) KAVIN (acute kidney injury) Status: Acute (4) Cardiomyopathy Status: Acute Assessment and plan: Ischemic cardiomyopathy, on metoprolol and lisinopril therapy with HCTZ. (5) Aortic insufficiency Status: Acute (6) Tobacco use Status: Acute (7) Left bundle branch block (LBBB) Status: Acute Assessment and plan: Telemetry shows sinus with LBBB. No high grade arrhythmias noted. (8) Vasovagal episode Status: Acute (9) NSTEMI (non-ST elevated myocardial infarction) Status: Acute Assessment and plan: Status post RCA and PDA drug-eluting stent placement. On DAPT therapy with aspirin and Plavix. (10) KAITLIN (renal artery stenosis) Status: Acute Assessment and plan: Status post bilateral renal artery stenting. 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 (13) CAD (coronary artery disease), [place] coronary artery Status: Acute Assessment and plan: NISHA to RCA and PDA, on DAPT. Assessment and Plan for All Diagnoses:: With increased renal functions post multivessel stenting, pt will need further monitoring with IVF overnight and possible home in next 24-48 hrs. Cardiac status stable. If discharged home over the weekend, then would like to see him on Sunday next week.
--- NOTE | 2021-02-11 07:52 | HMH.ACPN2 ---
Internal Medicine - PN: Subj *Date: 02/11/21 *Time: 07:52 Interval history: Events of yesterday noted, discussed case with cardiology a couple of times in relationship to mesenteric arterial stents, renal stents and cardiac stents. As noted per cardiology note mild complication with perinephric hematoma that caused some significant pain. Blood counts were monitored and repeat CT scans were monitored also. Patient has had no pain through the night and this morning feels well. He denies bloody stools, denies abdominal pain, and wishes to eat. Denies any kind of shortness of air or chest pain. Exam Vital signs and Labs for Last 24 Hours: Temp Pulse Resp BP Pulse Ox 98.4 F 56 L 12 141/69 H 96 02/11/21 04:00 02/11/21 04:00 02/11/21 04:00 02/11/21 04:00 02/11/21 04:00 Laboratory Results - last 24 hr 02/10/21 09:54: Activated Clotting Time > 400 H* 02/10/21 10:58: Activated Clotting Time 225 H* D 02/10/21 15:50: WBC 11.5 H D, RBC 3.79 L, Hgb 11.9 L, Hct 36.1 L, MCV 95.3 H, MCH 31.3 H, MCHC 32.8, RDW 14.7, Plt Count 190 D, MPV 9.0, Neut % (Auto) 86.0 H, Lymph % (Auto) 6.7 L, [place] % (Auto) 4.1, Eos % (Auto) 2.8, Baso % (Auto) 0.4, Neut # (Auto) 9.9 H, Lymph # (Auto) 0.8, [place] # (Auto) 0.5, Eos # (Auto) 0.3, Baso # (Auto) 0.1, Total Counted 100, Neutrophils % (Manual) 80 H, Lymphocytes % (Manual) 12, Monocytes % (Manual) 8, Platelet Estimate Normal, Hypochromasia 1+, Anisocytosis 1+ 02/10/21 18:16: Blood Type A Positive, Antibody Screen Negative 02/11/21 06:17: WBC 9.1, RBC 3.21 L, Hgb 10.1 L D, Hct 30.7 L, MCV 95.7 H, MCH 31.6 H, MCHC 33.0, RDW 14.8, Plt Count 195, MPV 8.9, Neut % (Auto) 80.3 H, Lymph % (Auto) 10.4, [place] % (Auto) 6.4, Eos % (Auto) 2.4, Baso % (Auto) 0.5, Neut # (Auto) 7.3, Lymph # (Auto) 1.0, [place] # (Auto) 0.6, Eos # (Auto) 0.2, Baso # (Auto) 0.0 02/11/21 06:17: Sodium 136, Potassium 4.6, Chloride 106, Carbon Dioxide 21 L, Anion Gap 13.6, BUN 24 H D, Creatinine 2.00 H D, Estimated Creat Clear 27, Estimated GFR 33 L, Est GFR ( Amer) 40 L D, Glucose 112 H D, Calcium 8.6 I & O for Last 24 hours: Intake & Output 02/08/21 02/09/21 02/10/21 02/11/21 11:59 11:59 11:59 11:59 Intake Total 1459 / 1459 740 / 740 318 / 318 Output Total 350 / 350 2170 / 2170 850 / 850 Balance 1109 / 1109 -1430 / -1430 -532 / -532 Weight 145 lb 130 lb 130 lb Narrative: Patient is pleasant, talkative, ENT exam clear. Lungs are clear and well-expanded. Heart rate regular. Abdomen is soft and nontender, no epigastric tenderness. No flank bruising or periumbilical bruising. Distal extremities are warm and well-perfused. Neurologically he is intact. Assessment and Plan (1) GI bleed Status: Acute Category: Medical Code(s): K92.2 - Gastrointestinal hemorrhage, unspecified (2) Hypertensive urgency Status: Acute Category: Medical Code(s): I16.0 - Hypertensive urgency (3) KAVIN (acute kidney injury) Status: Acute Category: Medical Code(s): N17.9 - Acute kidney failure, unspecified (4) Cardiomyopathy Status: Acute Category: Medical Code(s): I42.9 - Cardiomyopathy, unspecified (5) Aortic insufficiency Status: Acute Category: Medical Code(s): I35.1 - Nonrheumatic aortic (valve) insufficiency (6) Tobacco use Status: Acute Category: Social Hx Code(s): Z72.0 - Tobacco use (7) Left bundle branch block (LBBB) Status: Acute Category: Medical Code(s): I44.7 - Left bundle-branch block, unspecified (8) Vasovagal episode Status: Acute Category: Medical Code(s): R55 - Syncope and collapse (9) NSTEMI (non-ST elevated myocardial infarction) Status: Acute Category: Medical Code(s): I21.4 - Non-ST elevation (NSTEMI) myocardial infarction (10) KAITLIN (renal artery stenosis) Status: Acute Category: Medical Code(s): I70.1 - Atherosclerosis of renal artery (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
--- NOTE | 2021-02-11 09:00 | HMH.GSPN ---
Subjective Narrative: Patient's only complaint was left flank pain from perinephric hematoma. He states that this has now improved. No rectal bleeding. 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: Acute (12) Perinephric hematoma Status: Acute (13) CAD (coronary artery disease), [place] coronary artery Status: Acute Assessment and Plan for All Diagnoses:: Patient will need outpatient colonoscopy Exam Vital signs and Labs for Last 24 Hours: Temp Pulse Resp BP Pulse Ox 98.4 F 78 16 178/72 H 97 02/11/21 07:57 02/11/21 07:57 02/11/21 07:57 02/11/21 07:57 02/11/21 07:57 Laboratory Results - last 24 hr 02/10/21 09:54: Activated Clotting Time > 400 H* 02/10/21 10:58: Activated Clotting Time 225 H* D 02/10/21 15:50: WBC 11.5 H D, RBC 3.79 L, Hgb 11.9 L, Hct 36.1 L, MCV 95.3 H, MCH 31.3 H, MCHC 32.8, RDW 14.7, Plt Count 190 D, MPV 9.0, Neut % (Auto) 86.0 H, Lymph % (Auto) 6.7 L, [place] % (Auto) 4.1, Eos % (Auto) 2.8, Baso % (Auto) 0.4, Neut # (Auto) 9.9 H, Lymph # (Auto) 0.8, [place] # (Auto) 0.5, Eos # (Auto) 0.3, Baso # (Auto) 0.1, Total Counted 100, Neutrophils % (Manual) 80 H, Lymphocytes % (Manual) 12, Monocytes % (Manual) 8, Platelet Estimate Normal, Hypochromasia 1+, Anisocytosis 1+ 02/10/21 18:16: Blood Type A Positive, Antibody Screen Negative 02/11/21 06:17: WBC 9.1, RBC 3.21 L, Hgb 10.1 L D, Hct 30.7 L, MCV 95.7 H, MCH 31.6 H, MCHC 33.0, RDW 14.8, Plt Count 195, MPV 8.9, Neut % (Auto) 80.3 H, Lymph % (Auto) 10.4, [place] % (Auto) 6.4, Eos % (Auto) 2.4, Baso % (Auto) 0.5, Neut # (Auto) 7.3, Lymph # (Auto) 1.0, [place] # (Auto) 0.6, Eos # (Auto) 0.2, Baso # (Auto) 0.0 02/11/21 06:17: Sodium 136, Potassium 4.6, Chloride 106, Carbon Dioxide 21 L, Anion Gap 13.6, BUN 24 H D, Creatinine 2.00 H D, Estimated Creat Clear 27, Estimated GFR 33 L, Est GFR ( Amer) 40 L D, Glucose 112 H D, Calcium 8.6 I & O for Last 24 hours: Intake & Output 02/08/21 02/09/21 02/10/21 02/11/21 11:59 11:59 11:59 11:59 Intake Total 1459 / 1459 740 / 740 318 / 318 Output Total 350 / 350 2170 / 2170 950 / 950 Balance 1109 / 1109 -1430 / -1430 -632 / -632 Weight 145 lb 130 lb 130 lb
[2021-02-11 14:51] LABS: Basophils % 0.5 % (0.1-2.0); Eosinophils # 0.3 K/mm3 (0.0-0.4); Hematocrit 27.6 % (42.0-52.0); Hemoglobin 9.3 g/dL (14.1-18.0); Lymphocytes # 1.2 K/mm3 (0.7-4.5); Lymphocytes % 13.4 % (10-50); Mean Corpuscular HGB Conc 33.6 g/dL (31.8-35.4); Mean Corpuscular Hemoglobin 30.9 pg (27.0-31.2); Mean Corpuscular Volume 91.9 fl (80-94); Mean Platelet Volume 8.3 fl (7.4-10.4); Monocytes # 0.6 K/mm3 (0.1-1.0); Monocytes % 6.5 % (1.7-9.3); Neutrophils # 6.9 K/mm3 (1.8-7.8); Neutrophils % 76.6 % (37.0-80.0); Platelet Count 223 K/mm3 (142-424); Red Cell Distribution Width 14.1 % (11.5-17.5); White Blood Count 9.1 K/mm3 (4.8-10.8)
--- NOTE | 2021-02-11 18:32 | PC.NURSE ---
Patient is non tele and on room air. Patient is up ad milagros/standby assist. Bed in lowest position and call light and phone in reach.
[2021-02-11 19:39] LABS: Hematocrit 25.1 % (42.0-52.0); Hemoglobin 8.4 g/dL (14.1-18.0)
[2021-02-12] VITALS (15 sets, daily range): BP systolic 124–192; BP diastolic 49–67; PULSE 65–90; RESP 16–20; TEMP 36.7–37.3; O2SAT 92–98; BMI 20.8
[2021-02-12 07:17] LABS: Basophils % 0.3 % (0.1-2.0); Eosinophils # 0.4 K/mm3 (0.0-0.4); Eosinophils % 4.4 % (0.1-12.0); Hematocrit 26.3 % (42.0-52.0); Hemoglobin 8.8 g/dL (14.1-18.0); Lymphocytes % 9.9 % (10-50); Mean Corpuscular HGB Conc 33.5 g/dL (31.8-35.4); Mean Corpuscular Hemoglobin 31.2 pg (27.0-31.2); Mean Platelet Volume 8.5 fl (7.4-10.4); Monocytes # 0.5 K/mm3 (0.1-1.0); Monocytes % 4.7 % (1.7-9.3); Neutrophils # 7.9 K/mm3 (1.8-7.8); Neutrophils % 80.7 % (37.0-80.0); Platelet Count 221 K/mm3 (142-424); Red Blood Count 2.82 M/mm3 (4.60-6.20); White Blood Count 9.8 K/mm3 (4.8-10.8)
[2021-02-12 07:23] LABS: Chloride 108 mmol/L (98-107)
[2021-02-12 07:24] LABS: Potassium 4.2 mmoL/L (3.5-5.1); Sodium 136 mmol/L (136-145)
[2021-02-12 07:27] LABS: Anion Gap 12.2 mEq/L (5-15); Blood Urea Nitrogen 20 mg/dl (9-20); Calcium 8.5 mg/dl (8.4-10.2); Carbon Dioxide 20 mmol/L (22.0-30.0); Creatinine Clearance Estimated 36 mL/min (50-200); Estimated Glomerular Filt Rate 46 ml/min (>60); GFR (African American) 55 ML/MIN (>60); Glucose 110 mg/dl (74-100)
--- NOTE | 2021-02-12 09:22 | CT_ITS ---
PROCEDURE INFORMATION: Exam: CT Abdomen And Pelvis Without Contrast Exam date and time: 02/12/2021 9:22 AM Age: 75 years old Clinical indication: Condition or disease; Other: Perinephric hematoma; Additional info: F/u perinephric hematoma TECHNIQUE: Imaging protocol: Computed tomography of the abdomen and pelvis without contrast. Radiation optimization: All CT scans at this facility use at least one of these dose optimization techniques: automated exposure control; mA and/or kV adjustment per patient size (includes targeted exams where dose is matched to clinical indication); or iterative reconstruction. COMPARISON: CT ABDOMEN PELVIS WO CON 02/10/2021 5:07 PM FINDINGS: Lungs: Consolidation in the left lower lobe may represent atelectasis or pneumonia.. Pleural spaces: Small left pleural effusion Liver: 15 mm cystic structure in the liver measures 9 Hounsfield units consistent with simple cyst.. 10 mm simple cyst inferior aspect of the right lobe of the liver measures 18 Hounsfield units . No follow-up imaging recommended . Gallbladder and bile ducts: Normal. No calcified stones. No ductal dilation. Pancreas: Dilatation of the pancreatic duct. If pancreatic malignancy is suspected, recommend repeat study with IV contrast.. Spleen: Normal. No splenomegaly. Adrenal glands: Normal. No mass. Kidneys and ureters: Perinephric hematoma is again demonstrated on the left. It is stable on comparable images measuring 7.3 cm. Again noted is compression of the left renal parenchyma a which is stable... Nonobstructing right renal calculus. Increased opacities anterior to the sacrum may represent hemorrhage from the left kidney collecting in this region.. Large amount of complex fluid in the pelvis consistent with increasing hemoperitoneum from the left kidney.. Stomach and bowel: Diverticulosis of the rectosigmoid. Mild pericolonic inflammatory changes may represent mild diverticulitis in the appropriate clinical setting. No abscess. No bleeding. No perforation. Appendix: No evidence of appendicitis. Intraperitoneal space: Unremarkable. No free air. No significant fluid collection. Retroperitoneal space: Hemoperitoneum from the left kidney collecting posterior to the spleen and in the retroperitoneum. Vasculature: Coronary artery calcifications may indicate coronary artery disease. Again demonstrated are stents in celiac axis and SMA and renal arteries. Lymph nodes: Unremarkable. No enlarged lymph nodes. Urinary bladder: Unremarkable as visualized. Reproductive: Unremarkable as visualized. Bones/joints: Unremarkable. No acute fracture. Soft tissues: Unremarkable. IMPRESSION: 1. Perinephric hematoma is again demonstrated on the left. It is stable on comparable images measuring 7.3 cm. Again noted is compression of the left renal parenchyma a which is stable... 2. Consolidation in the left lower lobe may represent atelectasis or pneumonia.. 3. Dilatation of the pancreatic duct. If pancreatic malignancy is suspected, recommend repeat study with IV contrast.. 4. Again demonstrated are stents in celiac axis and SMA and renal arteries. 5. Increased opacities anterior to the sacrum may represent hemorrhage from the left kidney collecting in this region.. 6. Large amount of complex fluid in the pelvis consistent with increasing hemoperitoneum from the left kidney.. 7. Diverticulosis of the rectosigmoid. Mild pericolonic inflammatory changes may represent mild diverticulitis in the appropriate clinical setting. No abscess. No bleeding. No perforation. 8. 15 mm cystic structure in the liver measures 9 Hounsfield units consistent with simple cys
--- NOTE | 2021-02-12 09:25 | HMH.ACPN2 ---
Internal Medicine - PN: Subj *Date: 02/12/21 *Time: 09:25 Interval history: Overnight patient did fairly well but had some flank pain that was somewhat ameliorated by morphine administration. He is breathing easily but his blood pressure remains high. Hemoglobin through the night slightly dipped to 8.4 but it is recovered to 8.8 this morning. Did not receive transfusions. Exam Vital signs and Labs for Last 24 Hours: Temp Pulse Resp BP Pulse Ox 98.6 F 77 18 192/67 H 96 02/12/21 04:00 02/12/21 04:00 02/12/21 04:00 02/12/21 04:00 02/12/21 04:00 Laboratory Results - last 24 hr 02/10/21 18:16: Blood Type A Positive, Antibody Screen Negative, Crossmatch (AHG) See Detail 02/11/21 06:17: Blood Type Confirm Cancelled 02/11/21 13:55: WBC 9.1, RBC 3.00 L, Hgb 9.3 L, Hct 27.6 L, MCV 91.9, MCH 30.9, MCHC 33.6, RDW 14.1, Plt Count 223, MPV 8.3, Neut % (Auto) 76.6, Lymph % (Auto) 13.4, [place] % (Auto) 6.5, Eos % (Auto) 3.0, Baso % (Auto) 0.5, Neut # (Auto) 6.9, Lymph # (Auto) 1.2, [place] # (Auto) 0.6, Eos # (Auto) 0.3, Baso # (Auto) 0.0 02/11/21 19:33: Hgb 8.4 L, Hct 25.1 L 02/12/21 07:00: WBC 9.8, RBC 2.82 L, Hgb 8.8 L, Hct 26.3 L, MCV 93.0, MCH 31.2, MCHC 33.5, RDW 14.0, Plt Count 221, MPV 8.5, Neut % (Auto) 80.7 H, Lymph % (Auto) 9.9 L, [place] % (Auto) 4.7, Eos % (Auto) 4.4, Baso % (Auto) 0.3, Neut # (Auto) 7.9 H, Lymph # (Auto) 1.0, [place] # (Auto) 0.5, Eos # (Auto) 0.4, Baso # (Auto) 0.0 02/12/21 07:00: Sodium 136, Potassium 4.2, Chloride 108 H, Carbon Dioxide 20 L, Anion Gap 12.2, BUN 20, Creatinine 1.50 H D, Estimated Creat Clear 36, Estimated GFR 46 L, Est GFR ( Amer) 55 L D, Glucose 110 H, Calcium 8.5 I & O for Last 24 hours: Intake & Output 02/09/21 02/10/21 02/11/21 02/12/21 11:59 11:59 11:59 11:59 Intake Total 1459 / 1459 740 / 740 438 / 438 600 / 600 Output Total 350 / 350 2170 / 2170 1025 / 1025 250 / 250 Balance 1109 / 1109 -1430 / -1430 -587 / -587 350 / 350 Weight 130 lb 130 lb 132 lb 12.8 oz Narrative: Patient is in no distress. Appears comfortable. Breathing easily. Lungs clear, heart rate regular. Abdomen soft, no rebound or guarding but does have some subjective tenderness in the left lateral flank area. No peritoneal bruising. No retroperitoneal bruising or periumbilical bruising. No distal perfusion deficits. Assessment and Plan (1) GI bleed Status: Acute Category: Medical Code(s): K92.2 - Gastrointestinal hemorrhage, unspecified (2) Hypertensive urgency Status: Acute Category: Medical Code(s): I16.0 - Hypertensive urgency (3) KAVIN (acute kidney injury) Status: Acute Category: Medical Code(s): N17.9 - Acute kidney failure, unspecified (4) Cardiomyopathy Status: Acute Category: Medical Code(s): I42.9 - Cardiomyopathy, unspecified (5) Aortic insufficiency Status: Acute Category: Medical Code(s): I35.1 - Nonrheumatic aortic (valve) insufficiency (6) Tobacco use Status: Acute Category: Social Hx Code(s): Z72.0 - Tobacco use (7) Left bundle branch block (LBBB) Status: Acute Category: Medical Code(s): I44.7 - Left bundle-branch block, unspecified (8) Vasovagal episode Status: Acute Category: Medical Code(s): R55 - Syncope and collapse (9) NSTEMI (non-ST elevated myocardial infarction) Status: Acute Category: Medical Code(s): I21.4 - Non-ST elevation (NSTEMI) myocardial infarction (10) KAITLIN (renal artery stenosis) Status: Acute Category: Medical Code(s): I70.1 - Atherosclerosis of renal artery (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
--- NOTE | 2021-02-12 10:00 | HMH.GSPN ---
Subjective Narrative: No sign of gastrointestinal hemorrhage per patient, , or nursing staff. Progress Note: A&P (1) GI bleed Status: Acute Assessment and plan: No sign of ongoing hemorrhage. 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: Acute (12) Perinephric hematoma Status: Acute (13) CAD (coronary artery disease), [place] coronary artery Status: Acute Exam Vital signs and Labs for Last 24 Hours: Temp Pulse Resp BP Pulse Ox 98.0 F 70 20 139/57 L 97 02/12/21 08:00 02/12/21 08:00 02/12/21 08:00 02/12/21 08:00 02/12/21 08:00 Laboratory Results - last 24 hr 02/10/21 18:16: Blood Type A Positive, Antibody Screen Negative, Crossmatch (AHG) See Detail 02/11/21 06:17: Blood Type Confirm Cancelled 02/11/21 13:55: WBC 9.1, RBC 3.00 L, Hgb 9.3 L, Hct 27.6 L, MCV 91.9, MCH 30.9, MCHC 33.6, RDW 14.1, Plt Count 223, MPV 8.3, Neut % (Auto) 76.6, Lymph % (Auto) 13.4, [place] % (Auto) 6.5, Eos % (Auto) 3.0, Baso % (Auto) 0.5, Neut # (Auto) 6.9, Lymph # (Auto) 1.2, [place] # (Auto) 0.6, Eos # (Auto) 0.3, Baso # (Auto) 0.0 02/11/21 19:33: Hgb 8.4 L, Hct 25.1 L 02/12/21 07:00: WBC 9.8, RBC 2.82 L, Hgb 8.8 L, Hct 26.3 L, MCV 93.0, MCH 31.2, MCHC 33.5, RDW 14.0, Plt Count 221, MPV 8.5, Neut % (Auto) 80.7 H, Lymph % (Auto) 9.9 L, [place] % (Auto) 4.7, Eos % (Auto) 4.4, Baso % (Auto) 0.3, Neut # (Auto) 7.9 H, Lymph # (Auto) 1.0, [place] # (Auto) 0.5, Eos # (Auto) 0.4, Baso # (Auto) 0.0 02/12/21 07:00: Sodium 136, Potassium 4.2, Chloride 108 H, Carbon Dioxide 20 L, Anion Gap 12.2, BUN 20, Creatinine 1.50 H D, Estimated Creat Clear 36, Estimated GFR 46 L, Est GFR ( Amer) 55 L D, Glucose 110 H, Calcium 8.5 I & O for Last 24 hours: Intake & Output 02/09/21 02/10/21 02/11/21 02/12/21 11:59 11:59 11:59 11:59 Intake Total 1459 / 1459 740 / 740 438 / 438 840 / 840 Output Total 350 / 350 2170 / 2170 1025 / 1025 250 / 250 Balance 1109 / 1109 -1430 / -1430 -587 / -587 590 / 590 Weight 130 lb 130 lb 132 lb 12.8 oz - Constitutional no acute distress - *Routine Respiratory Exam Absent: respiratory distress - *Routine Cardiovascular Exam Absent: tachycardia
[2021-02-12 13:39] LABS: Basophils % 0.2 % (0.1-2.0); Eosinophils % 0.4 % (0.1-12.0); Hematocrit 21.4 % (42.0-52.0); Lymphocytes # 0.7 K/mm3 (0.7-4.5); Lymphocytes % 6.2 % (10-50); Mean Corpuscular HGB Conc 32.6 g/dL (31.8-35.4); Mean Platelet Volume 9.3 fl (7.4-10.4); Monocytes # 0.3 K/mm3 (0.1-1.0); Neutrophils # 9.6 K/mm3 (1.8-7.8); Neutrophils % 90.1 % (37.0-80.0); Platelet Count 201 K/mm3 (142-424); Red Blood Count 2.25 M/mm3 (4.60-6.20); Red Cell Distribution Width 14.2 % (11.5-17.5); White Blood Count 10.6 K/mm3 (4.8-10.8)
[2021-02-12 13:42] LABS: MANUAL DIFFERENTIAL MANUAL DIFFERENTIAL (MANUAL DIFF)
[2021-02-12 14:02] LABS: Lymphocytes % 11 % (10-50); Monocytes % 5 % (2-9); Neutrophils % 84 % (42-76); Platelet Estimate Normal; RBC Morphology Normal; Total Cells Counted 100
--- NOTE | 2021-02-12 19:25 | PC.NURSE ---
NO ACUTE CHANGES THIS SHIFT, PAIN WAS TREATED WITH PRN PERCOCET WITH GOOD EFFECTIVENESS, VSS T/O SHIFT.
--- NOTE | 2021-02-12 21:21 | PC.NURSE ---
During chart review hgb less than 8, hgb results at [address] Youssef notified and ordered to transfuse one unit now.
[2021-02-13] VITALS (7 sets, daily range): BP systolic 158–171; BP diastolic 60–81; PULSE 69–80; RESP 16–20; TEMP 36.6–37; O2SAT 90–96; BMI 21.2
[2021-02-13 01:45] LABS: Hematocrit 24.4 % (42.0-52.0); Hemoglobin 8.1 g/dL (14.1-18.0)
--- NOTE | 2021-02-13 03:18 | PC.NURSE ---
Pt rested well t/o shift. C/O right sided flank pain which was relieved per PRN medication. Pt received 1 unit of packed RBCs and tolerated well, HGB now 8.1. Denies bloody stools this shift. Call khan within reach will continue to monitor.
[2021-02-13 08:20] LABS: Chloride 107 mmol/L (98-107); Potassium 4.4 mmoL/L (3.5-5.1); Sodium 136 mmol/L (136-145)
[2021-02-13 08:23] LABS: Anion Gap 12.4 mEq/L (5-15); Blood Urea Nitrogen 22 mg/dl (9-20); Carbon Dioxide 21 mmol/L (22.0-30.0); Creatinine Clearance Estimated 40 mL/min (50-200); Estimated Glomerular Filt Rate 49 ml/min (>60); GFR (African American) 60 ML/MIN (>60)
[2021-02-13 08:24] LABS: Calcium 8.5 mg/dl (8.4-10.2); Glucose 111 mg/dl (74-100)
[2021-02-13 08:25] LABS: Basophils % 0.4 % (0.1-2.0); Eosinophils # 0.3 K/mm3 (0.0-0.4); Hematocrit 24.3 % (42.0-52.0); Hemoglobin 8.2 g/dL (14.1-18.0); Lymphocytes # 1.1 K/mm3 (0.7-4.5); Lymphocytes % 11.5 % (10-50); Mean Corpuscular HGB Conc 33.7 g/dL (31.8-35.4); Mean Corpuscular Hemoglobin 31.7 pg (27.0-31.2); Mean Corpuscular Volume 93.9 fl (80-94); Mean Platelet Volume 8.7 fl (7.4-10.4); Monocytes # 0.6 K/mm3 (0.1-1.0); Monocytes % 5.7 % (1.7-9.3); Neutrophils # 7.7 K/mm3 (1.8-7.8); Neutrophils % 79.4 % (37.0-80.0); Platelet Count 212 K/mm3 (142-424); Red Blood Count 2.59 M/mm3 (4.60-6.20); Red Cell Distribution Width 14.2 % (11.5-17.5); White Blood Count 9.7 K/mm3 (4.8-10.8)
--- NOTE | 2021-02-13 09:24 | HMH.GSPN ---
Subjective Narrative: He states that he feels a little better this morning . He received 1 unit of packed red blood cells with an adequate response. No bright red blood per rectum, melena, or hematemesis noted. Progress Note: A&P (1) GI bleed Status: Acute Assessment and plan: No further evidence of definitive gastrointestinal hemorrhage. Plans remain to proceed with outpatient colonoscopy in near future. His most recent drop in hemoglobin is more likely secondary to his perinephric hematoma as opposed to gastrointestinal hemorrhage. 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 Status: Acute (12) Perinephric hematoma Status: Acute (13) CAD (coronary artery disease), [place] coronary artery Status: Acute Exam Vital signs and Labs for Last 24 Hours: Temp Pulse Resp BP Pulse Ox 98.5 F 73 20 158/60 H 90 L 02/13/21 04:00 02/13/21 04:00 02/13/21 04:00 02/13/21 04:00 02/13/21 04:00 Laboratory Results - last 24 hr 02/10/21 18:16: Blood Type A Positive, Antibody Screen Negative, Crossmatch (AHG) See Detail 02/12/21 13:25: WBC 10.6, RBC 2.25 L, Hgb 7.0 L, Hct 21.4 L, MCV 95.0 H, MCH 31.0, MCHC 32.6, RDW 14.2, Plt Count 201, MPV 9.3, Neut % (Auto) 90.1 H, Lymph % (Auto) 6.2 L, [place] % (Auto) 3.0, Eos % (Auto) 0.4, Baso % (Auto) 0.2, Neut # (Auto) 9.6 H, Lymph # (Auto) 0.7, [place] # (Auto) 0.3, Eos # (Auto) 0.0, Baso # (Auto) 0.0, Total Counted 100, Neutrophils % (Manual) 84 H, Lymphocytes % (Manual) 11, Monocytes % (Manual) 5, Platelet Estimate Normal, RBC Morphology Normal 02/13/21 01:35: Hgb 8.1 L D, Hct 24.4 L 02/13/21 07:15: WBC 9.7, RBC 2.59 L, Hgb 8.2 L, Hct 24.3 L, MCV 93.9, MCH 31.7 H, MCHC 33.7, RDW 14.2, Plt Count 212, MPV 8.7, Neut % (Auto) 79.4, Lymph % (Auto) 11.5, [place] % (Auto) 5.7, Eos % (Auto) 3.0, Baso % (Auto) 0.4, Neut # (Auto) 7.7, Lymph # (Auto) 1.1, [place] # (Auto) 0.6, Eos # (Auto) 0.3, Baso # (Auto) 0.0 02/13/21 07:15: Sodium 136, Potassium 4.4, Chloride 107, Carbon Dioxide 21 L, Anion Gap 12.4, BUN 22 H, Creatinine 1.40 H, Estimated Creat Clear 40, Estimated GFR 49 L, Est GFR ( Amer) 60, Glucose 111 H, Calcium 8.5 I & O for Last 24 hours: Intake & Output 02/10/21 02/11/21 02/12/21 02/13/21 11:59 11:59 11:59 11:59 Intake Total 740 / 740 438 / 438 840 / 840 730 / 730 Output Total 2170 / 2170 1025 / 1025 250 / 250 300 / 300 Balance -1430 / -1430 -587 / -587 590 / 590 430 / 430 Weight 130 lb 132 lb 12.8 oz 135 lb 5.821 oz - Constitutional no acute distress - *Routine Respiratory Exam Absent: respiratory distress - *Routine Cardiovascular Exam Absent: tachycardia
--- NOTE | 2021-02-13 10:28 | HMH.DCSUM ---
General - General Admission date:: 02/08/21 Discharge date: 02/13/21 HPI HPI: Mr. Fraser is a pleasant 75-year-old male with minimal contact with the medical community until 2 months ago when he was admitted for pneumonia. At that time found to have significant elevation in blood pressure necessitating initiation of multiple medications. This morning states he had an episode of feeling the urge to go to the bathroom. When he had a bowel movement it was frankly bloody at home. Denies any nausea, abdominal pain, fever, chest pain. No previous episodes of similar melena or hematochezia. Work-up in the ER consisted of scans of his abdomen, head, chest. Noted to have inflammation of splenic flexure of colon. No maria fernanda source on imaging for bleeding. Initial hemoglobin normal at 13 however repeat labs have shown a drop to a level of 10. Multiple other small bloody bowel movements since being in the ER and admitted. Admitted to medicine for further management. On assessment after arriving to the floor, patient has had an additional large bloody bowel movement. Appears in no acute distress however. at bedside. Blood pressures have continued to be elevated through the day. Given a dose of lisinopril this afternoon, will monitor closely for improvement in his blood pressure. Hospital Course Hospital Course: Eliseo 75-year-old gentleman admitted for GI bleed. Treatment and hospital course as follows: Acute anemia secondary to GI bleed. Was transfused 2 units during hospitalization. Hemoglobin dropped to its lowest of just above 7 but gradually increased to low eights during hospital course. No significant further bleeding after the first day of admission. Surgery was consulted and performed upper GI scope. Given bleeding cessation, no colonoscopy performed. Imaging of abdomen showed thickening of splenic flexure. Suspect some ischemic bowel injury as source of bleeding. Cardiology was consulted to assist with arterial runoff studies. During procedure, identified several clinically significant stenoses in coronary arteries as well as renal arteries. Multiple stents were deployed during procedure. See their note for full details. Patient unfortunately developed perinephric hematoma. Serial H&H showed stabilization of blood cell count. Suspect no further bleeding at this time. Pain from hematoma treated with oxycodone due to development of KAVIN during hospitalization. KAVIN occurred after contrast from CT and vascular study. Gradually improved by day of discharge to baseline level of 1.4. Patient remains hemodynamically stable. Blood pressure still slightly elevated however will continue to make adjustments to blood pressure regimen in the outpatient setting. Plan to discharge on lisinopril, nifedipine, metoprolol. Further management at follow-up appointment tomorrow. We will also have scheduled follow-up with surgery and cardiology. Patient's at bedside during discussion on day of discharge. Examined on day of discharge. Medically stable for discharge home. Objective Vital signs: Temp Pulse Resp BP Pulse Ox 98.6 F 76 20 171/76 H 92 L 02/13/21 08:00 02/13/21 08:00 02/13/21 08:00 02/13/21 08:00 02/13/21 08:00 no acute distress, thin - *Routine HEENT Exam Head: Present: normocephalic Eye: Present: EOMI, PERRL ENT: Present: mucous membranes moist - *Routine Neck Exam Present: supple - *Routine Respiratory Exam Present: CTA bilaterally - *Routine Cardiovascular Exam Present: RRR - *Routine Abdominal Exam Present: soft, normoactive bowel sounds, tenderness (non-focal) - *Routine Extremities Exam Absent: cyanosis, clubbing, edema - *Routine Skin Exam Present: warm. Absent: rash - Detailed Eye Exam Eyelids: Bilateral normal inspection Results Labs on day of discharge: Labs from last 24 hours 02/13/21 02/13/21 02/13/21 07:15 07:15 01:35 WBC 9.7 RBC 2.59
--- NOTE | 2021-02-13 11:11 | HMH.PHACLD ---
Jonathan Fraser has received discharge medication counseling on the following medications: ASPIRIN (NEW) PLAVIX (NEW) METOPROLOL LISINOPRIL ATORVASTATIN (NEW) ALL NEW PRESCRIPTIONS WERE SENT TO [facility] IN [place]. PATIENT AND PATIENT'S VERBALIZED UNDERSTANDING AND HAD NO QUESTIONS AT THIS TIME. -OBI ALEXANDRE, PHARMD
== END 2021-02-13 12:30 | disposition home or self-care (01) | DRG 246 ==
LOC: ER 07:14 → 2ND 02-09 07:25
PROVIDERS: Internal Medicine; Internal Medicine Adolescent Medicine; Surgery; Admitting Provider Family Medicine; Emergency Provider Emergency Medicine; PCP Internal Medicine Adolescent Medicine; Visit Provider Internal Medicine Adolescent Medicine
PROC: 0DJ08ZZ Inspection of Upper Intestinal Tract, Via Natural or Artificial Opening Endoscopic (ICD-10-PCS; CPT 43235; principal; 2021-02-09 12:00)
PROC: 4A023N7 Measurement of Cardiac Sampling and Pressure, Left Heart, Percutaneous Approach (ICD-10-PCS; principal; 2021-02-10 11:00)
DX: I21.4 Non-ST elevation (NSTEMI) myocardial infarction (principal); K29.71 Gastritis, unspecified, with bleeding; K29.81 Duodenitis with bleeding; N17.9 Acute kidney failure, unspecified; I42.9 Cardiomyopathy, unspecified; I77.4 Celiac artery compression syndrome; Z20.822 Contact with and (suspected) exposure to COVID-19; D62 Acute posthemorrhagic anemia; N99.840 Postprocedural hematoma of a genitourinary system organ or structure following a genitourinary system procedure; I70.1 Atherosclerosis of renal artery; I16.0 Hypertensive urgency; I10 Essential (primary) hypertension; F17.210 Nicotine dependence, cigarettes, uncomplicated; I35.1 Nonrheumatic aortic (valve) insufficiency; Z71.6 Tobacco abuse counseling; I15.0 Renovascular hypertension; K44.9 Diaphragmatic hernia without obstruction or gangrene; R55 Syncope and collapse; Y84.8 Other medical procedures as the cause of abnormal reaction of the patient, or of later complication, without mention of misadventure at the time of the procedure
CPT/HCPCS: 43239 ×2; 36415; 37236; 37237; 70450; 71045; 72125; 72170; 74176; 74177; 80048; 80053; 82150; 82272; 83605; 83690; 83735; 84145; 84484; 85007; 85014; 85018; 85025; 85347; 85651; 86140; 86850; 88305; 88342; 92928; 93005; 93458; 96365; 96375; 99152; 99153; 99284; C1725; C1769; C1876; C9600; C9803; G0328; J1644; J2405; P9016; Q9967; U0003; U0005

== ENCOUNTER 2021-02-14 12:15 | Emergency (ER) | payer MEDICARE, MEDICAID, SELFPAY ==
[2021-02-14] VITALS (15 sets, daily range): BP systolic 133–161; BP diastolic 50–122; PULSE 60–88; RESP 16–21; TEMP 36.5–36.6; O2SAT 92–99; BMI 22.7
--- NOTE | 2021-02-14 12:31 | CT_ITS ---
PROCEDURE INFORMATION: Exam: CT Abdomen And Pelvis Without Contrast Exam date and time: 02/14/2021 12:31 PM Age: 75 years old Clinical indication: Abdominal pain; Acute; Additional info: Pain, constipation TECHNIQUE: Imaging protocol: Computed tomography of the abdomen and pelvis without contrast. Radiation optimization: All CT scans at this facility use at least one of these dose optimization techniques: automated exposure control; mA and/or kV adjustment per patient size (includes targeted exams where dose is matched to clinical indication); or iterative reconstruction. COMPARISON: CT ABDOMEN PELVIS WO CON 02/12/2021 9:59 AM FINDINGS: Pleural spaces: Small bilateral pleural effusions. Liver: Stable cysts in the liver Gallbladder and bile ducts: The gallbladder is distended . Pancreas: Dilatation of the pancreatic duct Spleen: Normal. No splenomegaly. Adrenal glands: Normal. No mass. Kidneys and ureters: Increasing size of the left perinephric hematoma. On comparable images it is increasing in size. Previously it measured 8.2 x 7 cm series 3 image 61. Today on same image it measures 10.3 x 7.6 cm. . Nonobstructing right renal calculus Stomach and bowel: Again noted is diverticulosis of the rectosigmoid. There may be mild diverticulitis which was discussed on the prior study.. Appendix: No evidence of appendicitis. Intraperitoneal space: Hemoperitoneum in the pelvis.. Mild ascites in the abdomen Vasculature: Unremarkable. No abdominal aortic aneurysm. Lymph nodes: Unremarkable. No enlarged lymph nodes. Urinary bladder: Unremarkable as visualized. Reproductive: Unremarkable as visualized. Bones/joints: Unremarkable. No acute fracture. Soft tissues: Unremarkable. IMPRESSION: 1. Small bilateral pleural effusions. 2. Increasing size of the left perinephric hematoma. On comparable images it is increasing in size. Previously it measured 8.2 x 7 cm series 3 image 61. Today on same image it measures 10.3 x 7.6 cm. . 3. The gallbladder is distended . 4. Again noted is diverticulosis of the rectosigmoid. There may be mild diverticulitis which was discussed on the prior study.. 5. Hemoperitoneum in the pelvis.. THIS REPORT CONTAINS FINDINGS THAT MAY BE CRITICAL TO PATIENT CARE. The findings were verbally communicated via telephone conference with DAKOTA JAIN at 1:52 PM EDT on 02/14/2021. The findings were acknowledged and understood.
[2021-02-14 12:41] LABS: Basophils % 0.4 % (0.1-2.0); Eosinophils # 0.5 K/mm3 (0.0-0.4); Eosinophils % 5.3 % (0.1-12.0); Hematocrit 24.2 % (42.0-52.0); Lymphocytes # 0.7 K/mm3 (0.7-4.5); Lymphocytes % 7.3 % (10-50); Mean Corpuscular HGB Conc 33.1 g/dL (31.8-35.4); Mean Corpuscular Hemoglobin 31.5 pg (27.0-31.2); Mean Platelet Volume 8.1 fl (7.4-10.4); Monocytes # 0.3 K/mm3 (0.1-1.0); Monocytes % 3.7 % (1.7-9.3); Neutrophils # 7.5 K/mm3 (1.8-7.8); Neutrophils % 83.2 % (37.0-80.0); Platelet Count 238 K/mm3 (142-424); Red Blood Count 2.55 M/mm3 (4.60-6.20); Red Cell Distribution Width 14.4 % (11.5-17.5)
[2021-02-14 12:47] LABS: Alanine Aminotransferase 8 U/L (12-78); Albumin Level 2.3 g/dl (3.5-5.0); Alkaline Phosphatase 64 U/L (38-126); Anion Gap 8.4 mEq/L (5-15); Aspartate Amino Transferase 21 U/L (17-59); Bilirubin,Total 0.5 mg/dl (0.2-1.3); Blood Urea Nitrogen 16 mg/dl (9-20); Calcium 6.9 mg/dl (8.4-10.2); Carbon Dioxide 18 mmol/L (22.0-30.0); Chloride 113 mmol/L (98-107); Creatinine Clearance Estimated 59 mL/min (50-200); Estimated Glomerular Filt Rate 73 ml/min (>60); GFR (African American) 88 ML/MIN (>60); Globulin 2.3 g/dL (1.3-3.2); Glucose 112 mg/dl (74-100); Lipase 48 U/L (23-300); Potassium 3.4 mmoL/L (3.5-5.1); Sodium 136 mmol/L (136-145); Total Protein,Serum 4.6 g/dl (6.3-8.2)
--- NOTE | 2021-02-14 12:47 | HMH.EDABDPAI ---
ED Disposition Clinical Impression: Perinephric hematoma, Blood loss anemia, Hemoperitoneum Disposition: Xfer Critical Access Hosp Condition on Discharge: Serious Instructions: DI for Acute Abdominal Pain Referrals: Provider,Referral, [Referring] - - Critical Care Critical Care Time: No Attestation: On 02/14/21, the high probability of a clinically significant, sudden or life threatening deterioration of the following system(s) required my full and direct attention, intervention and personal management. The time I documented below is in addition to time spent performing reported procedures but includes the following listed in this critical care notation. Medical Decision Making - Medical Records Medical records reviewed: Yes: I reviewed the patient's medical records. - Hugh Inquiry Pt receiving controlled substance: Yes Hugh was queried for this patient: Yes Risks and benefits of using a controlled substance: were discussed with pt by me Vital Signs: 02/14/21 12:15 02/14/21 12:31 02/14/21 12:45 Temperature 97.7 F Temperature Source Oral Pulse Rate 60 67 Pulse Rate [Left Radial] 64 Respiratory Rate 18 Blood Pressure 133/55 L 141/57 H Blood Pressure [Right Arm] 144/50 H Blood Pressure Mean 90 98 Blood Pressure Mean [Right Arm] 81 Blood Pressure Source [Right Arm] Automatic Cuff Blood Pressure Position [Right Arm] Sitting 02 Sat by Pulse Oximetry 97 98 97 Oxygen Delivery Method Room Air 02/14/21 13:15 02/14/21 13:46 02/14/21 14:01 Temperature Temperature Source Pulse Rate 66 65 60 Pulse Rate [Left Radial] Respiratory Rate Blood Pressure 141/60 H 141/52 H 154/50 H Blood Pressure [Right Arm] Blood Pressure Mean 95 112 99 Blood Pressure Mean [Right Arm] Blood Pressure Source [Right Arm] Blood Pressure Position [Right Arm] 02 Sat by Pulse Oximetry 95 97 98 Oxygen Delivery Method 02/14/21 14:15 02/14/21 14:30 02/14/21 14:45 Temperature Temperature Source Pulse Rate 60 60 65 Pulse Rate [Left Radial] Respiratory Rate Blood Pressure 143/122 H 149/51 H 159/61 H Blood Pressure [Right Arm] Blood Pressure Mean 126 95 91 Blood Pressure Mean [Right Arm] Blood Pressure Source [Right Arm] Blood Pressure Position [Right Arm] 02 Sat by Pulse Oximetry 95 95 95 Oxygen Delivery Method - Lab Data Lab Results 02/14/21 12:19: WBC 9.0, RBC 2.55 L, Hgb 8.0 L, Hct 24.2 L, MCV 95.0 H, MCH 31.5 H, MCHC 33.1, RDW 14.4, Plt Count 238, MPV 8.1, Neut % (Auto) 83.2 H, Lymph % (Auto) 7.3 L, [place] % (Auto) 3.7, Eos % (Auto) 5.3, Baso % (Auto) 0.4, Neut # (Auto) 7.5, Lymph # (Auto) 0.7, [place] # (Auto) 0.3, Eos # (Auto) 0.5 H, Baso # (Auto) 0.0 02/14/21 12:19: Sodium 136, Potassium 3.4 L D, Chloride 113 H, Carbon Dioxide 18 L, Anion Gap 8.4, BUN 16 D, Creatinine 1.00 D, Estimated Creat Clear 59, Estimated GFR 73, Est GFR ( Amer) 88 D, Glucose 112 H, Calcium 6.9 L, Total Bilirubin 0.5, AST 21, ALT 8 L, Alkaline Phosphatase 64, Total Protein 4.6 L, Albumin 2.3 L, Globulin 2.3, Albumin/Globulin Ratio 1.0 L, Lipase 48 02/14/21 12:19: PT 11.5, INR 1.02, APTT 24.1 02/14/21 12:50: Lactate 0.9 Result diagrams: 02/14/21 12:19 02/14/21 12:19 Orders (Tests/Meds): ED MEDICATIONS Discontinued Medications Generic Name Dose Route Start Last Admin Trade Name Patsy PRN Reason Stop Dose Admin Sodium Chloride 1,000 mls @ 999 mls/hr 02/14/21 12:45 02/14/21 13:49 Sod Chlor 0.9% 1000ml Bag IV 02/14/21 13:45 999 mls/hr .[id number] LINDA Administration Iopamidol 100 ml 02/14/21 15:15 02/14/21 15:16 Iopamidol-370 (76%);100ml Bottle IV 02/14/21 15:16 100 ml ONCE ONE Administration Morphine Sulfate 4 mg 02/14/21 12:31 02/14/21 12:56 Morphine 4mg/Ml Syringe IV 02/14/21 12:32 4 mg ONCE ONE Administration Morphine Sulfate 4 mg 02/14/21 14:42 02/14/21 14:42 Morphine 4mg/Ml Syringe IV 02/14/21 14:43 4 mg ONCE
[2021-02-14 13:21] LABS: Lactic Acid 0.9 mmol/L (0.7-2.1)
--- NOTE | 2021-02-14 14:20 | PC.NURSE ---
Dr Zelaya on with M[facility]
--- NOTE | 2021-02-14 14:35 | CT_ITS ---
PROCEDURE INFORMATION: Exam: CT Angiography Abdomen With Contrast Exam date and time: 02/14/2021 2:35 PM Age: 75 years old Clinical indication: Condition or disease; Other: Hematoma; Additional info: Perinephric hematoma TECHNIQUE: Imaging protocol: Computed tomographic angiography images of the abdomen with intravenous contrast material. 3D rendering (Not supervised by radiologist): MIP and/or 3D reconstructed images were created by the technologist. Radiation optimization: All CT scans at this facility use at least one of these dose optimization techniques: automated exposure control; mA and/or kV adjustment per patient size (includes targeted exams where dose is matched to clinical indication); or iterative reconstruction. Contrast material: ISOVUE; Contrast volume: 100 ml; Contrast route: INTRAVENOUS (IV); COMPARISON: CT ABDOMEN PELVIS WO CON 02/14/2021 12:56 PM FINDINGS: Lungs: Consolidation in the lower lobes may represent atelectasis or pneumonia.. Pleura: Small bilateral pleural effusions.. Aorta: No aortic aneurysm. No aortic dissection. Celiac trunk and mesenteric arteries: No occlusion or significant stenosis. Renal arteries: No occlusion or significant stenosis. Liver: Stable hepatic cysts. Gallbladder and bile ducts: Again noted is distended gallbladder 10 cm.. Pancreas: Normal. No ductal dilation. Spleen: Normal. No splenomegaly. Adrenals: Normal. No mass. Kidneys and ureters: Hyperdense curvilinear structure in the the left perinephric hematoma consistent with active extravasation. Series 3, image 25- 29. Series 601 image 31-33. Again noted is the left perinephric hematoma. Essentially stable since the CT 2 hours ago. Stomach and bowel: Constipation throughout the colon Lymph nodes: Unremarkable. No enlarged lymph nodes. Intraperitoneal space: Again noted is hemoperitoneum in the abdomen and pelvis. Bones/joints: Unremarkable. No acute fracture. No dislocation. Soft tissues: Unremarkable. IMPRESSION: 1. Hyperdense curvilinear structure in the the left perinephric hematoma consistent with active extravasation. Series 3, image 25- 29. Series 601 image 31-33. 2. Small bilateral pleural effusions.. 3. Again noted is distended gallbladder 10 cm.. 4. Again noted is the left perinephric hematoma. Essentially stable since the CT 2 hours ago. 5. Again noted is hemoperitoneum in the abdomen and pelvis. 6. Consolidation in the lower lobes may represent atelectasis or pneumonia..
[2021-02-14 15:01] LABS: Activated Partial Thrombo Time 24.1 seconds (22.8-30.6); INR 1.02 (0.9-1.1); Prothrombin Time 11.5 seconds (10.1-12.5)
[2021-02-14 16:17] LABS: Coronavirus 19, PCR Not Detected (NotDetected); Influenza A, PCR Not Detected (NotDetected); Influenza B, PCR Not Detected (NotDetected)
--- NOTE | 2021-02-14 17:07 | PC.NURSE ---
report called to [facility]
--- NOTE | 2021-02-14 17:50 | PC.NURSE ---
pt and family updated on plan of care
== END 2021-02-14 19:57 | disposition short-term general hospital (02) ==
PROVIDERS: Emergency Provider Emergency Medicine; PCP Internal Medicine Adolescent Medicine
DX: S37.019A Minor contusion of unspecified kidney, initial encounter (principal); K66.1 Hemoperitoneum; D50.0 Iron deficiency anemia secondary to blood loss (chronic); I10 Essential (primary) hypertension; F17.210 Nicotine dependence, cigarettes, uncomplicated; Z20.822 Contact with and (suspected) exposure to COVID-19
CPT/HCPCS: 74175; 74176; 80053; 83605; 83690; 85025; 85610; 85730; 96365; 96375; 96376; 99284; C9803; J2405; Q9967; U0003; U0005

== ENCOUNTER → 2021-07-01 07:36 | Outpatient (CLI) | payer MEDICARE, MEDICAID, SELFPAY ==
--- NOTE | 2021-07-01 07:42 | US_ITS ---
FINAL REPORT CLINICAL HISTORY: H/O NICOTINE DEPENDENCE; evaluate for AAA; history of stents FINDINGS: Limited sonographic images were obtained of the abdomen to evaluate the abdominal aorta and iliac arteries. The abdominal aorta measures up to 2.5 cm in greatest dimension. There is some mild plaque formation. The iliac arteries are within normal limits. IMPRESSION: Mild plaque formation with no evidence of abdominal aortic aneurysm. Reviewed, Interpreted and Dictated by Mauro Sesay MD Transcribed by Sharon Wiseman Authenticated by Mauro Sesay MD on 07/01/2021 10:36:[address] [facility]
--- NOTE | 2021-07-01 07:42 | CT_ITS ---
FINAL REPORT CLINICAL HISTORY: H/O NICOTINE DEPENDENCE smoker- 1/2 ppd x 25 years cardiac and renal stents per patient FINDINGS: Low-Dose Chest CT CTDI vol (mGy): 2.90 DLP (mGy-cm): 105.51 Axial images were obtained from the lung apex to the mid abdomen by computed tomography. Low-dose protocol was utilized. FINDINGS: CHEST: On the mediastinal window images there is moderate mediastinal adenopathy. A pre-vascular lymph node measures 2.1 cm in greatest dimension. A precarinal lymph node measures 2.1 cm. A right paratracheal lymph node measures up to 1.8 cm. Calcified right hilar lymph nodes are present. The heart is proper size. There is no pericardial or pleural effusion. Limited images of the upper abdomen demonstrates a vascular stent in the celiac axis. Lung window images demonstrate no suspicious infiltrate or nodule. There are moderately advanced changes of centrilobular emphysema. Pleural calcifications are identified at the apices bilaterally. IMPRESSION: S modifier: Mediastinal adenopathy, greater than expected. Advanced centrilobular emphysema. Lung RADS category 1S. Recommend 6 month follow-up chest CT to re-evaluate the adenopathy. Reviewed, Interpreted and Dictated by Mauro Sesay MD Transcribed by Sharon Wiseman Authenticated by Mauro Sesay MD on 07/01/2021 10:36:45 AM [facility]
== END ==
PROVIDERS: PCP Internal Medicine Adolescent Medicine; Visit Provider Internal Medicine Adolescent Medicine
DX: Z87.891 Personal history of nicotine dependence (principal); Z12.2 Encounter for screening for malignant neoplasm of respiratory organs; Z13.6 Encounter for screening for cardiovascular disorders
CPT/HCPCS: 71271; 76705

== ENCOUNTER → 2021-09-28 11:24 | Outpatient (CLI) | payer MEDICARE, MEDICAID, SELFPAY ==
--- NOTE | 2021-09-28 | US_ITS ---
FINAL REPORT CLINICAL HISTORY: Smoker, HTN, CAD, NC, Leg pain, claudication FINDINGS: ANKLE-BRACHIAL PRESSURE INDICES FINDINGS: Pressure indices are as follows: RIGHT LOWER EXTREMITY: Ankle-brachial pressure index: 0.54 Comments: Severe PVD LEFT LOWER EXTREMITY: Ankle-brachial pressure index 0.8 Comments: Mild PVD IMPRESSION: Severe PVD in the right lower extremity. Mild PVD the left lower extremity. Reviewed, Interpreted and Dictated by Miguel Guevara MD Transcribed by Tarah Ojeda Authenticated by Miguel Guevara MD on 09/28/2021 05:07:11 PM [facility]
== END ==
PROVIDERS: PCP Internal Medicine Adolescent Medicine; Visit Provider Internal Medicine Adolescent Medicine
DX: I10 Essential (primary) hypertension (principal); I70.213 Atherosclerosis of native arteries of extremities with intermittent claudication, bilateral legs
CPT/HCPCS: 93923

== ENCOUNTER → 2021-10-11 14:12 | Outpatient (CLI) | payer MEDICARE, MEDICAID, SELFPAY ==
--- NOTE | 2021-10-11 14:26 | CT_ITS ---
FINAL REPORT CLINICAL HISTORY: PERIPHERAL VASCULAR DISEASE, PAD COMPARISON: 02/14/2021 FINDINGS: Thin section axial CT images of the abdomen, pelvis and lower extremities were obtained with contrast. Multiplanar reformatted images were also obtained and reviewed. ABDOMEN AND PELVIS: The celiac axis, superior mesenteric artery, and bilateral renal artery stents are all patent. There is moderate vascular calcification. There is no abdominal aortic aneurysm or dissection. The celiac axis and proximal superior mesenteric artery are unremarkable. There is no renal artery stenosis. The inferior mesenteric artery is patent. The right common iliac artery demonstrates 30% diameter stenosis. The right external iliac arteries demonstrate several mild stenoses measuring 30-40%. There is mild stenosis involving the left common and external iliac arteries. The internal iliac arteries are patent. RIGHT LOWER EXTREMITY: There is multifocal stenosis involving the right superficial femoral artery measuring 50-60%. The right deep femoral artery is patent. There is 40% stenosis of the popliteal artery. There are multiple stenoses involving the posterior tibial artery. There is three-vessel runoff to the distal lower leg. LEFT LOWER EXTREMITY: There are multifocal stenoses involving the left superficial femoral artery, worst proximally measuring 80%. The the common femoral artery is normal. The left deep femoral artery is patent. There are multiple mild stenoses of the popliteal artery. There are multiple mild stenoses involving the anterior and posterior tibial arteries. There is three-vessel runoff to the distal lower leg. OTHER FINDINGS: Patent celiac axis , SMA, and bilateral renal artery stents. Multifocal stenosis involving the lower legs as detailed above. Reviewed, Interpreted and Dictated by Nikos Crowe III, MD Transcribed by Teresa Montelongo Authenticated and [facility]
== END ==
PROVIDERS: PCP Internal Medicine Adolescent Medicine; Visit Provider Internal Medicine Adolescent Medicine
DX: I73.9 Peripheral vascular disease, unspecified (principal)
CPT/HCPCS: 73701; Q9967

== ENCOUNTER → 2022-08-01 11:39 | Outpatient (CLI) | payer MEDICARE, MEDICAID, SELFPAY ==
[2022-08-01 12:17] LABS: Blood Urea Nitrogen 22 mg/dl (9-20); Estimated Glomerular Filt Rate 37 ml/min (>60); GFR (African American) 44 ML/MIN (>60)
--- NOTE | 2022-08-01 13:43 | CT_ITS ---
FINAL REPORT TECHNIQUE: The patient was injected with IV contrast. Axial images were obtained of the chest by computed tomography. Precontrast images were also obtained. This study was performed with techniques to keep radiation doses as low as reasonably achievable (ALARA). Individualized dose reduction techniques using automated exposure control or adjustment of mA and/or kV according to the patient's size were employed. CLINICAL HISTORY: LYMPHADENOPATHY COMPARISON: CT LOW DOSE SCREENING -- 07/01/2021 FINDINGS: CT OF THE CHEST WITH AND WITHOUT CONTRAST: There is no axillary lymphadenopathy. There is stable mediastinal lymphadenopathy. Left pre-vascular lymph node measures 2 cm, was 2.1 cm. Precarinal lymph node measures 2.5 cm, was 2.2 cm. Other lymph nodes appear stable. No hilar lymphadenopathy. There is no pleural or pericardial effusion. The heart is enlarged but stable. Emphysema is noted. There is stable biapical pleural scarring. No suspicious pulmonary nodules or masses. No consolidation. Limited evaluation of the upper abdomen demonstrates a small hypodense lesion in the left lobe of the liver which is stable and likely a cyst. The visualized pancreatic duct is dilated, incompletely imaged. No acute osseous abnormality. IMPRESSION: Stable mediastinal lymphadenopathy, nonspecific and favor reactive. Stable cardiomegaly. Incompletely imaged pancreatic duct dilatation. Consider MRCP. Reviewed, Interpreted and Dictated by Vinita Weiss MD Transcribed by Yessenia Claire Authenticated and [facility]
== END ==
PROVIDERS: PCP Internal Medicine Adolescent Medicine; Visit Provider Internal Medicine Adolescent Medicine
DX: R59.0 Localized enlarged lymph nodes (principal)
CPT/HCPCS: 36415; 71270; 82565; 84520; Q9967

== ENCOUNTER 2023-09-06 14:00 | Outpatient (CLI) | payer MEDICARE, MEDICAID, SELFPAY ==
[2023-09-06 14:10] LABS: Microscopic, Urine URINE MICROSCOPIC (MICROSCOPIC)
[2023-09-06 14:27] LABS: Appearance,Urine CLEAR (Clear); Bilirubin,Urine Negative (Negative); Blood, Urine Negative (Negative); Color,Urine YELLOW (Yellow); Glucose,Urine (UA) Negative (Negative); Ketones,Urine Negative (Negative); Leukocyte Esterase,Urine Negative (Negative); Nitrate,Urine Negative (Negative); Protein,Urine Negative (Negative); Specific Gravity, Urine 1.025 (1.005-1.030); Urobilinogen,Urine 0.2 EU/dl (0.2)
[2023-09-06 14:30] LABS: Hematocrit 35.2 % (42.0-52.0); Hemoglobin 11.6 g/dL (14.1-18.0); Mean Corpuscular Hemoglobin 32.5 pg (27.0-31.2); Mean Corpuscular Volume 98.6 fl (80-94); Platelet Count 368 K/mm3 (142-424); Red Blood Count 3.57 M/mm3 (4.60-6.20); Red Cell Distribution Width 14.4 % (11.5-17.5); White Blood Count 7.6 K/mm3 (4.8-10.8)
[2023-09-06 14:37] LABS: Bacteria,Urine Trace /lpf; Creatinine,Urine Random 137 mg/dL (Not Estab.); Squamous Epithelial Cell,Urine Occasional #/hpf (0-5)
[2023-09-06 15:13] LABS: Anion Gap 9.8 mEq/L (5-15); Blood Urea Nitrogen 21 mg/dl (9-20); Calcium 9.2 mg/dl (8.4-10.2); Carbon Dioxide 23 mmol/L (22.0-30.0); Chloride 114 mmol/L (98-107); Estimated Glomerular Filt Rate 34 ml/min (>60); GFR (African American) 42 ML/MIN (>60); Glucose 88 mg/dl (74-100); Phosphorous 3.4 mg/dl (2.5-4.5); Potassium 4.8 mmoL/L (3.5-5.1); Sodium 142 mmol/L (136-145)
[2023-09-06 15:25] LABS: Intact Parathyroid Hormone 104.1 pg/mL (7.5-53.5)
[2023-09-06 15:32] LABS: 25-OH Vitamin D, Total 22.6 ng/mL (30-100)
== END 2023-09-06 23:59 | disposition home or self-care (01) ==
LOC: LAB 14:01
PROVIDERS: PCP Internal Medicine Adolescent Medicine; Visit Provider Internal Medicine Nephrology
DX: N18.4 Chronic kidney disease, stage 4 (severe) (principal); E55.9 Vitamin D deficiency, unspecified
CPT/HCPCS: 36415; 80069; 81001; 82306; 82570; 83970; 84156; 85014; 85018; 85048; 85049